=== PATIENT | female | born 1960 | race Caucasian/White ===

== ENCOUNTER 2024-12-11 08:42 | Outpatient (AMB) | payer MEDICARE, SELFPAY ==
--- NOTE | 2024-12-11 08:45 | HO.SPINEOV ---
Vital Signs 12/11/24 09:02 Height 5 ft 8 in Weight 135 lb BMI 20.5 Intake Visit Reasons: LBP Intake Note: Ms. Taylor is here today c/o low back pain that radiates down to the legs. 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 HPI: This 64-year-old female has not extensive spinal surgical history with cervical fusions and an L4-5 lumbar fusion. She was doing quite well until June where she was reading low to the ground and turned and fell backwards. This minor trauma elicited progressive back pain more on the right than the left, bilateral hip pain and thigh pains. The latter is worse at night. The pain is constantly present. Wakes her up at night. Preferably position is sleeping on her left side. Prolonged sitting aggravates his symptoms. She was recently diagnosed with ankylosing spondylitis. She tried physical therapy which made the symptoms worse. She is currently not allowed to have steroid injections due to suspicion of uveitis. PMH: Fibromyalgia, GERD Medications: Pantoprazole, Linzess, doxycycline, diazepam, methocarbamol p.r.n. Allergies: NKDA Social history: Nonsmoker Physical Exam: Pleasant female. He has bilateral pain over the SI joints. SI provocative tests are positive. Straight leg raise produces pain in the back. No motor or sensory deficits. Radiological Studies: MRI done at [place] on 10/31/2024 shows status post L4-5 lumbar fusion. Mild L1-L2 degenerative disc disease. Mild L5 endplate deformity. No nerve root compression. No spinal stenosis Impression/Plan: This patient has an exacerbation of chronic back pain after a minor trauma. Imaging reviews no significant anatomical abnormalities to explain the symptoms. I am wondering if she suffering from a sacroiliitis for which she has risk factors such as ankylosing spondylitis and a previous lumbar fusion. I advised to obtain a diagnostic block of the right SI joint. She will call the office of Dr. Gardner at [facility] to schedule this. Thank you for allowing me to participate in your patients care. total time spent was 50 minutes in counseling ,coordination of plan, personal review of imaging, surgical decision making and subsequent plan Harshad Lopes MD, PhD Sp[facility] Trained Neurosurgeon Director, [facility] Coding Level of Care Code New Pt Level 4 (76179) Diagnoses Sacroiliitis, not elsewhere classified M46.1
[2024-12-11 09:02] VITALS: BMI 20.5
--- OUTSIDE RECORDS SUMMARY | 2024-12-11 09:08 | XMS_ITS | Data Portability ---
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 The patient does have an MRI from almost 2 years ago of the foot that did show early osteoarthritis. This may have progressed significantly over the last 2 years. At this point, we will ask for MRI of her right ankle to further evaluate these 2 pathologies. Follow up once the exams have been done. The patient agrees with this plan. All questions have been answered. [email or web address] Not available 10/04/2023 10:21:04 10/30/2023 10/30/2023 ASSESSMENT Patient with chronic right great toe medial ankle lower leg pain, probable spine related. PLAN I did discuss with Laura, then I feel she needs to see a neurologist for possible EMG studies to assess if this is coming from her back. MRI shows no major structural abnormalities or dysfunction. She will do this followup with us on a p.r.n. basis. All questions were answered. Patient was seen and examined by Dr. Cole, dictated by TELLY Burrell. [email or web address] Not available 10/31/2023 05:07:44 Plan of Treatment Reminders Order Date Submit Date Provider Last Modified By Organization Details Last Modified Time Details Appointments Est. New to Provider 30 2024 10:00A Krunal MORGAN MD Not available Not available Not available Lab None recorded. Referral neurologi st referral - EMG study to assess nerve injury right lower extremity - patient with h/o spine dysfuncti on and pain along medial ankle, medial lower leg.... MRI ankle/trice t normal [address] [facility], [address], [place], [address], 11/10/2023 19:12:32 Procedures None recorded. Surgeries None recorded. Imaging electromy ogram + nerve conductio n study - Please call pt to schedule 2020 021 [facility], [address], [address], [place], [address], 05/05/2021 13:39:44 MRI, ankle + foot, w/o contrast - Right ankle & foot MRI w/o contrast - Assess for OA/DJD , PTT Tendon* pls obtain auth & call patient to schedule * [address] [facility], [address], [place], [address], 10/03/2023 17:59:01 Medication Orders None recorded. Patient TargetsNo targets recorded. Patient Instructions Encounter Date Encounter Id Patient Instructions Last Modified By Organization Details Last Modified Time 03/06/2021 [id number] The findings, diagnosis, and options are discussed including potential treatments. The decision was made to plan for EMG NCS. based on symptoms and clinical findings. We reviewed in detail today surgery for thumb CMC arthritis, risks benefits and postoperative expectations. She would consider this for July or Fall this year. For now she will use a thumb splint as needed. All questions are answered. Follow up will be arranged after testing. Patient will call if problems or questions. Not available 03/06/2021 11:38:26 05/08/2021 [id number] The findings, diagnosis, and options are discussed including potential treatments. We reviewed the findings of recent EMG NCS We again reviewed in detail today surgery for thumb CMC arthritis, carpal tunnel release, and mucous cyst excision in particular for the right thumb as this is more symptomatic. The risks benefits and postoperative expectations are outlined. She would consider this for July or Fall this year. For now she will use a thumb splint as needed. All questions are answered. She will contact the office when ready to plan for surgery. I spent a total of 20 minutes during this real-time interactive audio visual clinical encounter. Greater than 50% of the time was devoted to counseling and coordinating care including review of records, pertinent lab data and studies, discussing diagnostic evaluation and workup, planned therapeutic interventions and future disposition of care. This time includes any additional research needed to obtain further information in formulating the plan of care of this patient. It also included counseling the patient about their disease and diagnosis, specifically CTS, CMC arthritis, cyst and surgeries. Not available 05/08/2021 10:32:54 Reason for Referral Neurologist Referral for Nayan n in lower limb EMG study to assess nerve injury right lower extremity - patient with h/o spine dysfunction and pain along medial ankle, medial lower leg.... MRI ankle/foot normal Referring Physician: Enzo Cole, Orthopedic Surgery, Encounter Date: 10/30/2023 Results Created Date Observation Date Name Description Value Unit Range Abnormal Flag Note LastModifiedBy Organization Detail LastModifiedTime 03/06/20 21 MRI, hand, w/o contr ast No observ ation record ed. [email or web address] Not Available 2020 10:28:28 03/06/20 21 03/06/2021 xr hands bilat 3 views each min Fin al Report EXAM#: [id number] PROCED URE: DXR 0076 XR HANDS BILAT 3 VIEWS EACH MIN Mar 06 2021 11:06A M CLINIC AL INDICA TION: PAIN IN RIGHT HAND, PAIN IN LEFT HAND Compar karime: None FINDIN GS: Right hand demons trates thumb IP joint space narrow ing with small osteop hytes, compat ible with degene ration . Extens ion of the MTP joint may be fixed deform ity. Thumb CMC joint exhibi ts mild narrow ing. Index and long finger DIP joints exhibi t mild narrow ing and small osteop hytes. Left hand index DIP joint space narrow ing is modera te-mar ked with small osteop hytes, compat ible with degene rative joint diseas e. Narrow ing of the small finger DIP joint. NUMBER OF IMAGES : 6 Report ed by : HEBER ARANDA M.D. On: Mar 06 2021 4:01P Signed by: HEBER ARANDA M.D. On: Mar 06 2021 4:03P [email or web address] [facility] [address] [place], [address], 03/06/2021 16:24:28 03/06/20 21 03/06/2021 XR, hand, 3 or more view No observ ation record ed. [email or web address] (Mri) [address] [place], [address], 03/07/2021 07:01:12 04/28/20 21 04/28/2021 elect romyo gram + nerve condu ction study No observ ation record ed. [address] [facility] [address] [place], [address], 05/05/2021 13:39:57 04/28/20 21 04/28/2021 elect romyo gram + nerve condu ction study No observ ation record ed. [address] [facility] [address] [place], [address], 05/05/2021 13:40:58 10/03/20 23 10/03/2023 xr foot and ankle left 5 views Fin al Report EXAM#: [id number] PROCED URE: DXR 0038 XR FOOT AND ANKLE LEFT 5 VIEWS Oct 03 2023 2:57PM CLINIC AL INDICA TION: PAIN IN RIGHT AND LEFT ANKLE AND JOINTS OF RIGHT AND LEFT FOOT The ankle mortis e is not widene d. Degene rative change s are presen t of the first metata rsopha langea l joint. NUMBER OF IMAGES : 5 Report ed by : CHARI OLSON M.D. On: Oct 03 2023 3:11P Signed by: CHARI OLSON M.D. On: Oct 03 2023 3:11P [email or web address] [facility] [address] [place], [address], 10/03/2023 15:30:09 10/03/20 23 10/03/2023 xr foot and ankle right 5 views Fin al Report EXAM#: [id number] PROCED URE: DXR 0039 XR FOOT AND ANKLE RIGHT 5 VIEWS Oct 03 2023 2:57PM CLINIC AL INDICA TION: PAIN IN RIGHT AND LEFT ANKLE AND JOINTS OF RIGHT AND LEFT FOOT ADDITI ONAL INDICA TION: None TECHNI QUE: 5 views of the right foot and ankle. COMPAR KARIME: None FINDIN GS: No eviden ce of fractu re or malali gnment . The ankle mortis e is congru ent and the talar dome is intact . No articu lar abnorm alitie s identi fied. No osseou s lesion s are detect ed. No soft tissue abnorm alitie s are seen. NUMBER OF IMAGES : 5 Report ed by : LISA NASCIMENTO M.D. On: Oct 03 2023 3:12P Signed by: LISA NASCIMENTO M.D. On: Oct 03 2023 3:12P [facility] [address] [place], [address], 10/03/2023 15:30:10 10/22/20 23 10/21/2023 MRI, foot, w/o contr ast [facility] MRI and Imagin g- Mem Cam Access ion Number : [id number] Johanna t Name: Sheldon Lee [facility] Record Number : [id number] Date of : 1959 Date of Exam: 2022 Referr ing Physic russ: Enzo Michaels [employer] [address] [place] [address] Exam: MR Foot (C-) CPT 17344 - Right Room Descri ption: [facility] emGEHD Mob 1.5 INDICA TION: Ankle and foot pain. TECHNI QUE: Multip lanar, multis equenc e MRI of the right ankle and foot was perfor med withou t contra st using standa rd depart mental protoc ol. COMPAR KARIME: MRI right ankle and foot 022. FINDIN GS: JOINTS /BONES : Small joint effusi on or synovi al gangli on fourth tarsom etatar jose carlos joint, unchan ged. Simila r patchy marrow edema involv ing the distal phalan ges of the toes most promin ent in the great toe. Simila r mild edema of the fibula r hallux sesamo id. No acute fractu re. No osteoc hondra l lesion . Mild osteoa rthrit is at first metata rsopha langea l joint. No osseou s erosio ns. No coalit ion. Normal hindfo ot alignm ent on this non-we ightbe aring examin ation. LATERA L LIGAME NTS: Anteri or talofi bular (ATFL) : Unrema rkable . Calcan eofibu lar (CFL): Unrema rkable . Safety Administrator ior talofi bular (PTFL) : Unrema rkable . Anteri or/Pos terior syndes mosis: Unrema rkable . MEDIAL LIGAME NTS: Deltoi d: Unrema rkable . Spring : Unrema rkable . LISFRA NC LIGAME NT: Intact . PERONE AL TENDON S: Perone us longus : No tendin osis or tear. Perone us brevis : No tendin osis or tear. FLEXOR TENDON S: Safety Administrator ior tibial is: No tendin osis or tear. Flexor digito rum longus : No tendin osis or tear. Flexor halluc is longus : No tendin osis or tear. EXTENS OR TENDON S: Anteri or tibial is: No tendin osis or tear. Extens or halluc is longus : No tendin osis or tear. Extens or digito rum longus : No tendin osis or tear. ACHILL ES TENDON : No tendin osis or tear. PLANTA R PLATES : Intact planta r plates withou t tear. INTERM ETATAR JOSE CARLOS SPACES : No interm etatar jose carlos neurom a. No interm etatar jose carlos bursit is. TENDON S: Flexor and extens or tendon s intact withou t tendin osis or tear. No tenosy noviti s. OTHER: Planta r fascia : No thicke sabina or perifa cial edema Sinus tarsi: Sinus tarsi fat preser johanna. Tarsal tunnel : Unrema rkable ; no mass or mass effect . Muscle s: Mild fatty atroph y of the muscul ature. Soft tissue s: No subcut aneous edema. No fluid collec tion or soft tissue mass. IMPRES AMRITA: No signif icant interv al change since prior MRI. Unchan ged patchy marrow edema in the distal phalan ges of the toes. I, Terrence Smith, have review ed the examin ation and concur with the findin gs as report ed or so edited . Traine e: Debbie Fraser If this radiol ogy report contai ns a blank impres amrita sectio n, it is an incomp lete radiol ogy report . Please contac t the interp reting radiol ogist or applic able radiol ogy divisi on as soon as possib le to obtain the comple dejon interp retati on. Workst ation ID: [id number]' 8 140 Electr onical ly Signed By: Terrence Smith MD [address] [facility] At [address], [address], 10/22/2023 20:43:11 10/22/20 23 10/21/2023 MRI, ankle , w/o contr ast [facility] MRI and Imagin g- Mem Cam Access ion Number : [id number] Patien t Name: Alexandrea [facility] Record Number : [id number] Date of : 1959 Date of Exam: 2022 Referr ing Physic russ: Enzo Michaels [employer] [address] [place] [address] Exam: MR Ankle (C-) CPT 97956 - Right Room Descri ption: [facility] emGEHD Mob 1.5 INDICA TION: Ankle and foot pain. TECHNI QUE: Multip lanar, multis equenc e MRI of the right ankle and foot was perfor med withou t contra st using standa rd depart mental protoc ol. COMPAR KARIME: MRI right ankle and foot 022. FINDIN GS: JOINTS /BONES : Small joint effusi on or synovi al gangli on fourth tarsom etatar jose carlos joint, unchan ged. Simila r patchy marrow edema involv ing the distal phalan ges of the toes most promin ent in the great toe. Simila r mild edema of the fibula r hallux sesamo id. No acute fractu re. No osteoc hondra l lesion . Mild osteoa rthrit is at first metata rsopha langea l joint. No osseou s erosio ns. No coalit ion. Normal hindfo ot alignm ent on this non-we ightbe aring examin ation. LATERA L LIGAME NTS: Anteri or talofi bular (ATFL) : Unrema rkable . Calcan eofibu lar (CFL): Unrema rkable . Safety Administrator ior talofi bular (PTFL) : Unrema rkable . Anteri or/Pos terior syndes mosis: Unrema rkable . MEDIAL LIGAME NTS: Deltoi d: Unrema rkable . Spring : Unrema rkable . LISFRA NC LIGAME NT: Intact . PERONE AL TENDON S: Perone us longus : No tendin osis or tear. Perone us brevis : No tendin osis or tear. FLEXOR TENDON S: Safety Administrator ior tibial is: No tendin osis or tear. Flexor digito rum longus : No tendin osis or tear. Flexor halluc is longus : No tendin osis or tear. EXTENS OR TENDON S: Anteri or tibial is: No tendin osis or tear. Extens or halluc is longus : No tendin osis or tear. Extens or digito rum longus : No tendin osis or tear. ACHILL ES TENDON : No tendin osis or tear. PLANTA R PLATES : Intact planta r plates withou t tear. INTERM ETATAR JOSE CARLOS SPACES : No interm etatar jose carlos neurom a. No interm etatar jose carlos bursit is. TENDON S: Flexor and extens or tendon s intact withou t tendin osis or tear. No tenosy noviti s. OTHER: Planta r fascia : No thicke sabina or perifa cial edema Sinus tarsi: Sinus tarsi fat preser johanna. Tarsal tunnel : Unrema rkable ; no mass or mass effect . Muscle s: Mild fatty atroph y of the muscul ature. Soft tissue s: No subcut aneous edema. No fluid collec tion or soft tissue mass. IMPRES AMRITA: No signif icant interv al change since prior MRI. Unchan ged patchy marrow edema in the distal phalan ges of the toes. I, Terrence Smith, have review ed the examin ation and concur with the findin gs as report ed or so edited . Brooklynn lundberg: Debbie Fraser If this radiol ogy report contai ns a blank impres amrita sectio n, it is an incomp lete radiol ogy report . Please contac t the interp reting radiol ogist or applic able radiol ogy divisi on as soon as possib le to obtain the comple dejon interp retati on. Workst ation ID: [id number] 5' 8 140 Electr onical ly Signed By: Terrence Smith MD [address] [facility] At [address], [address], 10/22/2023 20:43:11 01/09/20 24 nerve condu ction study /EMG, lower extre mity (PROC ) No observ ation record ed. [email or web address] Not Available 2023 11:15:08 11/11/20 24 10/31/2024 MRI, lumba r spine , w/o contr ast No observ ation record ed. [email or web address] Not Available 2023 10:23:32 Result Notes None recorded. Procedures Surgical History Date Name Laterality Status Provider Name and Address Organization Details Recorded Time 11/25/19 08 Orthopaedic Surgery completed Marija Esquivel MA [facility] 03/06/2021 10:20:28 11/25/19 05 Orthopaedic Surgery completed Marija Esquivel MA [facility] 03/06/2021 10:20:39 11/25/19 02 Orthopaedic Surgery completed Marija Esquivel MA [facility] 03/06/2021 10:20:44 06/03/19 99 Orthopaedic Surgery completed Marija Esquivel MA [facility] 03/06/2021 10:20:51 Imaging Results Imaging Date Name Status LastModified by Organization Details LastModified Time 03/06/2021 MRI, hand, w/o contrast completed [email or web address] Information not available 03/06/2021 10:28:28 03/06/2021 xr hands bilat 3 views each min completed [address] [facility] [address] [place], [address], 03/06/2021 16:24:28 03/06/2021 XR, hand, 3 or more view completed [address] (Mri) [address] [place], [address], 03/07/2021 07:01:12 04/28/2021 electromyogram + nerve conduction study completed [address] [facility] [address] [place], [address], 05/05/2021 13:39:57 04/28/2021 electromyogram + nerve conduction study completed [address] [facility] [address] [place], [address], 05/05/2021 13:40:58 10/03/2023 xr foot and ankle left 5 views completed [address] [facility] [address] [place], [address], 10/03/2023 15:30:09 10/03/2023 xr foot and ankle right 5 views completed [address] [facility] [address] [place], [address], 10/03/2023 15:30:10 10/21/2023 MRI, foot, w/o contrast completed [address] [facility] [address], [address], 10/22/2023 20:43:11 10/21/2023 MRI, ankle, w/o contrast completed [address] [facility] At [address], [address], 10/22/2023 20:43:11 01/09/2024 nerve conduction study/EMG, lower extremity (PROC) [email or web address] Information not available 01/09/2024 11:15:08 10/31/2024 MRI, lumbar spine, w/o contrast completed [email or web address] Information not available 11/11/2024 10:23:32 Procedure Notes None recorded. Medical Equipment None Reported. Allergies No known drug allergies Medications Not known to be on any medication Vitals Date Recorded Body height Provider Name an d Address Organization Details Last Updated DateTime 03/06/2021 172.72 cm Marija Esquivel [facility] 03/06/2021 10:16:54 Date Recorded Body mass index (BMI) Body weight Provider Name and Address Organization Details Last Updated DateTime 03/06/2021 20.5 kg/m2 52214.97 g Marija Esquivel MA [facility] 03/06/2021 10:16:55 Date Recorded Body height Provider Name an d Address Organization Details Last Updated DateTime 05/08/2021 172.72 cm Leeanne Medina [facility] 05/08/2021 10:07:04 Date Recorded Body height Provider Name an d Address Organization Details Last Updated DateTime 10/03/2023 172.72 [facility] 10/03/2023 15:00:49 Date Recorded Body mass index (BMI) Body weight Provider Name and Address Organization Details Last Updated DateTime 10/03/2023 20.5 kg/m2 92419.97 g [facility] 10/03/2023 15:00:52 Date Recorded Body height Provider Name an d Address Organization Details Last Updated DateTime 10/30/2023 172.72 cm Estuardo Montesus [facility] 10/30/2023 11:45:02 Social History Question Answer Notes LastModified by Organizat ion Details LastModified Time Tobacco Smoking Status Never Smoker Marija Esquivel [facility] 03/06/2021 10:17:04 What Is Your Level Of Alcohol Consumption? Occasional [email or web address] Information not available 03/06/2021 Auto Related Injury? No [email or web address] Information not available 10/03/2023 What Is Your Level Of Caffeine Consumption? Moderate [email or web address] Information not available 03/06/2021 Do You Or Have You Ever Used E-cigarettes Or Vape? Never Used Electronic Cigarettes [email or web address] Information not available 03/06/2021 What Is Your Occupation? Retired [email or web address] Information not available 03/06/2021 Have You Had Cortisone? Yes [email or web address] Information not available 03/06/2021 Do You Or Have You Ever Used Smokeless Tobacco? Never Used Smokeless Tobacco [email or web address] Information not available 03/06/2021 Work Related Injury? No [email or web address] Information not available 10/03/2023 Sex: Unknown Functional Status Question Answer Note LastModified by Organizat ion Details LastModified Time What is your exercise level? Occasional [email or web address] Information not available 03/06/2021 Mental Status None recorded. Family History Relationship Description Onset Age of this Age Resolved Age Notes LastModified by Organization Details LastModified Time Father No current problems or disability [email or web address] Not available 07/2023 15:00:56 Mother No current problems or disability [email or web address] Not available 07/2023 15:00:56 Mother History of anesthesia problem [email or web address] Not available 10/03 15:00:56 Mother Phlebitis Not availa ble 10/03/2023 15:00:56 Medical History Condition Response Blood Clots / Phlebitis N Heart Problems N HIV or AIDS N Depression or Anxiety N High Blood Pressure N Irregular Heartbeat N MRSA N Emphysema / Chronic Bronchitis N Any Other Significant Medical Issues N Reaction to General/Local Anesthesia Y Weight Gain / Loss N Hepatitis / Jaundice N Kidney / Bladder Infections N Diabetes N Bleeding Disorder N Hearing Loss N Angina, Heart Failure or Attack N Night Sweats N Seizures / Epilepsy N Osteoarthritis / Rheumatoid arthritis / Other Y Cancer N Stroke N Chemical Dependency / Alcoholism N Ulcer / Stomach Bleeding / Indigestion N Visual Loss or Glaucoma N Psoriasis / Skin Rash N Thyroid Disorder N Heart Disease N Asthma / Shortness of Breath / Sleep Hotel Yardperson ea (please specify) N Pulmonary Embolism N Gynecological HistoryNo gynecological history recorded. Obstetrics History GPAL:G 0 P 0 0 0 0 Immunizations Vaccine Type Date Status Note Provider Nam e and Address Organization Details Recorded Time SARS-COV-2 (COVID-19) vaccine, UNSPECIFIED completed Marija lopez MA [facility] 03/06/2021 10:17:31 Past Encounters Encounter ID Performer Location Encounter Start Date Encounter Closed Date Diagnosis/Indication Diagnosis SNOMED-CT Code Diagnosis ICD10 Code Diagnosis Note [id number] ROSEMARIE COLEMAN MD [address] [place] [address] 03/06/2021 10:04:42 03/06/2021 11:06:39 Arthritis of first carpometacarpal joint of right hand 5324274220 027374 M13.841 Degenerati ve joint disease of hand 14856754 M19.049 Digital mucous cyst 4040 43821 M71.341 Bilateral carpal tunnel syndrome 3042568064 1318875 G56.03 [id number] ROSEMARIE COLEMAN MD [place] [facility] [address] [place] [address] 05/08/2021 06:37:03 05/08/2021 10:24:03 Arthritis of first carpometacarpal joint of right hand 3495324509 986224 M13.841 Degenerati ve joint disease of hand 15570556 M19.049 Digital mucous cyst 4040 59844 M71.341 thumb IP joint Bilateral carpal tunnel syndrome 0865168078 9649818 G56.03 mild Ulnar neur opathy of left arm 7226619432 54977 G56.22 mild [id number] ENZO COLE MD [place] [facility] [address] [address] 10/03/2023 14:32:22 10/03/2023 17:02:39 Pain in toe 548592492 M79.674 Tibialis p osterior tendinitis 274272357 M76.351 [id number] ENZO COLE MD [place] [facility] [address] [place] [phone] 10/30/2023 11:37:03 10/30/2023 14:02:30 Pain in lower limb 94579211 M79.606 Health Concerns Section Related Observation LastModified by Organization Detai ls LastModified Time None Recorded Concern Status LastModified by Organization Details LastModified Time None Recorded Advance Directives Directive None Recorded Payers Encounter Date Sequence Insurance Name Policy Number Policy [employer] Covered Member ID [employer] Member ID Guarantor Name 03/06/2021 1 [facility] (MEDICARE REPLACEMENT/A DVANTAGE - PPO) [id number] Gildardo Lee [id number] Laura naranjo 05/08/2021 1 [facility] (MEDICARE REPLACEMENT/A DVANTAGE - PPO) [id number] Gildardo Lee [id number] Laura Hathaway n 10/03/2023 1 [facility] (MEDICARE REPLACEMENT/A DVANTAGE - PPO) [id number] Gildardo Lee [id number] Laura Hathaway n 10/30/2023 1 [facility] (MEDICARE REPLACEMENT/A DVANTAGE - PPO) [id number] Gildardo Lee [id number] Laura Hathaway n Notes Date Note Type Note Provider Name and Address Organization Details Recorded Time 03/06/2021 text/html The patient is s een today for evaluation of bilateral hand pain and paresthesias. This is consistent in part with past diagnosis of thumb CMC arthritis and CTS bilateral. History is notable for cervical radiculopathy. She has been under the care of Dr. Arellano for these hand conditions. Past treatments have included: activity modification, NSAIDs, splinting, therapy, and multiple coritisone CMC injection(s). Last 2 injections have not helped. Imaging/tests performed: radiographs not available. Current associated signs and symptoms include: pain, stiffness, difficulty with credit collections specialist and paresthesias. No prior history of trauma is noted. Consultation is requested. ROSEMARIE COLEMAN MD [address] [place] [address], [phone] 03/06/2021 11:44:01 05/08/2021 text/html This visit was conducted as a real-time interactive telehealth encounter (telephone with interactive audio visual) due to the national emergency and ongoing COVID-19 pandemic restrictions on travel/movement. The patient was identified by name and date of , and consented to this encounter as an interactive audio visual telehealth visit. The patient was at home in [place] and I was at my office/home office. The patient's recent medical history and prior records were reviewed. Application utilized: Qure4U The patient is re evaluated for bilateral hand pain and paresthesias. This is consistent in part with past diagnosis of thumb CMC arthritis and CTS bilateral. She has previously treated with Dr. Arellano for these hand conditions. Past treatments have included: activity modification, NSAIDs, splinting, therapy, and multiple coritisone CMC injection(s). Last 2 injections have not helped. Imaging/tests performed: radiographs not available. Current associated signs and symptoms include: pain, stiffness, difficulty with credit collections specialist and paresthesias. This prompted EMG NCS, surgery has been discussed in past. Her is with her today. ROSEMARIE COLEMAN MD [address] [place] [address], [place], [phone], [facility] 05/08/2021 10:32:59 10/03/2023 text/html Laura is a very pleasant 63-year-old lady who comes for a problem with her right foot and ankle. She also suffers from Raynaud syndrome. She refers some pain behind her medial now the pain is constant, painful and tender to palpation. She also has pain over her 1st MTP joint. Several months ago, she did have out in office surgery with exotic dancer which had incision in the medial side of interphalangeal joint and apparently some bone spurs were removed. Independent review of x-rays taken today show normal ankle. No arthritis of the ankle joint and subtalar joint. Mild arthritis of the 1st MTP joint. Overall, the alignment of the hindfoot, midfoot, and forefoot. Some evidence of 2nd, 3rd and 4th hammertoe. This is flexible physical exam, not painful. She does have scar over her medial aspect of her 1st toe. No radiological evidence of any metal implants or any prior scar from a prior surgery. ENZO COLE MD [address] [place] [address], [phone], [facility] 10/04/2023 13:10:36 10/30/2023 text/html Laura retur ns to clinic today to review an MRI of her foot and ankle. She was last seen by Dr. Cole on 10/03/2023. She has had some chronic pain through the great toe, medial ankle, anteromedial craven going up to her knee. She does have history of 5 spine surgeries having some numbness in this leg and no pain. MRIs were ordered to assess for an orthopedic etiology. ENZO COLE MD [address] [place] [address], [phone], [facility] 10/31/2023 13:43:52 OBGyn Episode No OBEpisode recorded.
--- OUTSIDE RECORDS SUMMARY | 2024-12-11 09:08 | XMS_ITS | Data Portability ---
Author Organization [facility] Address [address] [place] [address] Care Team Providers Care Pearl Digger Name Role Phone JUAN JOSE ÁLVAREZ Primary Care Provider JUAN JOSE ÁLVAREZ Referring Provider [phone] Assessment No assessment recorded. Plan of Treatment Reminders Order Date Submit Date Provider Last Modified By Organization Details Last Modified Time Details Appointments None record ed. Lab None record ed. Referral None record ed. Procedures None record ed. Surgeries None record ed. Imaging None record ed. Medication Orders None record ed. Patient TargetsNo targets recorded. Patient InstructionsNo instructions recorded. Reason for Referral None Reported. Problems Name Problem SNOMED Code Status Onset Date Resolution Date Notes Provider Name and Address Organization Details Recorded Time Valgus deformity of toe 138816574 Active 2022 Hallux valgus, right foot; W/U Status: confirmed W/U Status: confirmed Hallux valgus, left foot; W/U Status: confirmed W/U Status: confirmed Not Available [facility] 3 13:17:57 Neuropath y of lower limb 001717811 Active 2022 Unspecifi ed mononeuro juwan of left lower limb; W/U Status: confirmed W/U Status: confirmed Not Available [facility] 3 13:17:57 Acquired right hallux valgus 88853200931 410 Active 2022 Hallux valgus, right foot; W/U Status: confirmed Not Available [facility] 3 09:02:54 Acquired left hallux valgus 28611730741 410 Active 2022 Hallux valgus, left foot; W/U Status: confirmed Not Available [facility] 3 09:02:54 Mononeuro juwan of lower limb 334829316 Active 2022 Unspecifi ed mononeuro juwan of left lower limb; W/U Status: confirmed Not Available [facility] 3 09:02:54 Problem Notes None recorded. Medical Equipment None Reported. Medications Name Sig Start Date Stop Date Status Note LastModified by Organization Details LastModified Time methocarbamol 500 mg tablet TAKE 2 TABLETS BY MOUTH 4 TIMES A DAY NEEDED active Not Available Not Available No t Available minoxidil 2.5 mg tablet TAKE 1/2 TABLET BY MOUTH EVERY OTHER DAY FOR 3 MONTHS THEN INCREASE TO 1/2 TABLET DAILY DIRECTED active Not Available Not Available No t Available oxycodone-acet aminophen 5 mg-325 mg tablet active Not Available Not Available Not Available doxycycline monohydrate 50 mg capsule TAKE 1 CAPSULE BY MOUTH EVERY DAY active Not Available Not Available No t Available nifedipine 10 mg capsule TAKE 1 CAPSULE BY MOUTH EVERY 12 HOURS DIRECTED active Not Available Not Available No t Available cephalexin 500 mg capsule active Not Available Not Available N ot Available pantoprazole 40 mg tablet,delayed release TAKE 1 TABLET BY MOUTH ONCE DAILY FOR 30 MIN BEFORE DINNER active Not Available Not Available No t Available omeprazole 20 mg capsule,delaye d release TAKE 1 CAPSULE BY MOUTH TWICE A DAY active Not Available Not Available No t Available codeine 10 mg-guaifenesin 100 mg/5 mL oral liquid TAKE 10 ML BY MOUTH EVERY 4 HOURS FOR 5 DAYS active Not Available Not Available No t Available estradiol 0.01% (0.1 mg/gram) vaginal cream active Not Available Not Availabl e Not Available methylpredniso lone 4 mg tablets in a dose pack active Not Available Not Available No t Available diazepam 5 mg tablet 1 TABS ORALLY TWICE A DAY NEEDED MUSCLE PAIN 30 DAYS active Not Available Not Available No t Available sumatriptan 6 mg/0.5 mL subcutaneous pen injector active Not Available Not Available Not Available clobetasol 0.05 % shampoo active Not Available Not Availab le Not Available duloxetine 30 mg capsule,delaye d release active Not Available Not Available No t Available Paxlovid 300 mg (150 mg x 2)-100 mg tablets in a dose pack TAKE 3 TABLETS BY MOUTH TWICE A DAY FOR 5 DAYS active Not Available Not Available No t Available Vitals None Recorded Social History None recorded. Functional Status None recorded. Mental Status None recorded. Family History Nothing Reported. Medical History No medical history recorded. Gynecological HistoryNo gynecological history recorded. Obstetrics History GPAL:G 0 P 0 0 0 0 Past Encounters Encounter ID Performer Location Encounter Start Date Encounter Closed Date Diagnosis/Indication Diagnosis SNOMED-CT Code Diagnosis ICD10 Code Diagnosis Note [id number] Israel Lazar DPM [address] [address] 08/15/2023 13:29:38 08/15/2023 13:56:32 Metatarsalgia of right foot [id number] 92961 M77.41 Metatarsal fabiola of left foot 2470039588 58122 M77.42 We recommend that she continue with physical therapy at the present time. Since her pain is not bothering her presently, we will follow with the patient in 2 months. If her symptoms persist, it is possible that the orthotic may not be adequately protecting central metatarsal s during gait. [id number] Israel Lazar DPM [address] [address] 11/07/2023 14:16:13 11/07/2023 14:35:43 Pain in right foot [id number] 66407 M79.671 We recommend neurology consult since her symptoms are worse when she is lying in bed at night and did not appear to be exacerbate d with weightbear ing. Descriptio n of her symptoms sound consistent with neuropathi c pain. She does relate issues with the lower back. [id number] Israel Lazar DPM [address] [address] 04/15/2024 10:41:56 04/15/2024 10:59:39 Acquired hammer toe of right foot [id number] 647879 M20.41 Patient is using silicon interspace pads between the fourth and fifth digits and also on the second digit over the PIPJ. We debrided callus today and discuss the option of performing an arthroplas ty of the fifth digit with the intention of decreasing pressure between the fourth and fifth digit during gait. We discussed the surgical technique, specifics of the postoperat chantell period, and the risks involved. [id number] Israel Lazar DPM [facility] [address] [place] [address] 08/06/2024 14:56:51 08/06/2024 15:34:25 Pain in right foot [id number] 54929 M79.671 Fact that the pain radiates from the right hallux up the medial aspect of the ankle and medial right leg suggests possible proximal radiculopa thy. Patient is not interested in going back on gabapentin or Cymbalta. She does feel at the Cymbalta help to lessen her symptoms. We did perform a wedge resection at the medial border of the right hallux. We did debride the callus at the plantar medial aspect of the hallux IPJ. Health Concerns Section Related Observation LastModified by Organization Detai ls LastModified Time None Recorded Concern Status LastModified by Organization Details LastModified Time None Recorded Advance Directives Directive None Recorded Payers Encounter Date Sequence Insurance Name Policy Number Policy [employer] Covered Member ID [employer] Member ID Guarantor Name 11/07/2023 1 [place] [id number] [id number] 04/15/[address] Taylor Jesus [id number] Laura Taylor Jesus 08/06/[address] Talyor Jesus [id number] [facility] Notes Date Note Type Note Provider Name and Address Organization Details Recorded Time 08/15/2023 text/html Patient presents to the office for follow-up of bilateral forefoot pain. She is status post reduction of exostosis at the hallux IPJ of the right foot. This area is pain-free at the present time. She states that the pain in the forefoot has not been bad recently. She has a pair of orthotics which were made by an orthopedic surgeon in [place] 2 years ago. These were made with a scanning device. She does not have them with her today. Patient points to the dorsal aspect of the midfoot in the area of the central metatarsals as the area of most pain when the pain is present. She states that the area is nonpainful presently as stated above. Israel Lazar DPM [address] [place], [phone], [facility] 08/18/2023 16:42:56 11/07/2023 text/html Patient presents to the office complaining of pain in the right lower extremity which occasionally starts in the medial aspect of the ankle and radiates proximally to the knee. She is status post reduction of exostosis at the plantar medial aspect of the hallux IPJ of the right foot. She states that this procedure has helped to lessen her pain in this area during ambulation. She states that the pain in her leg and in her foot seems to be worse when she is lying in bed at night. Patient has fibromyalgia. In the past, she has tried gabapentin but wishes to not be on this medication. She has tried Cymbalta and this helped with fibromyalgia pain, however she wishes to not be on this medication. Israel Lazar, [address], [phone], [facility] 11/07/2023 14:36:37 04/15/2024 text/html Patient presents to the office with a chief complaint of pain between the fourth and fifth digit of the right foot. She states that she has had this problem on and off for over 40 years. She is also experiencing a mild recurrence pain at the plantar medial aspect of the first IPJ of the right foot. She is status post surgical reduction of exostosis in this area. She is been completely pain free since her surgery up until recently. She is using a pair of slip on flexible soled shoes that she finds very comfortable. Patient has fibromyalgia. Israel Lazar DPM [address] [place] [address], [phone], [facility] 04/15/2024 11:07:17 08/06/2024 text/html Patient presents to the office with a chief complaint of pain in the right hallux and medial aspect of the right foot and right lower leg. She is status post surgical reduction of exostosis at the right hallux which was performed in April 2023. She feels that this procedure did help to lessen her symptoms. She is not sure if her pain is in the area of her previous exostosis or if it is in the nail border. She recently cut her nail back. He points to the medial border is an area of pain. There is slight redness and swelling present at the right hallux but no increase in temperature. Mild swelling without redness at the medial aspect of the right ankle. No pain to palpation of the calf muscle of the right side. Patient has fibromyalgia. She states that she has had pain in the right hallux resolved with lower back injection previously. Israel Lazar, DPKrunal [address] [place], [phone], [facility] 08/06/2024 15:40:40 OBGyn Episode No OBEpisode recorded.
--- OUTSIDE RECORDS SUMMARY | 2024-12-11 09:08 | XMS_ITS | Data Portability ---
Author Organization [place] - [facility] [employer], [employer] [facility] Address [address] [address] Assessment No assessment recorded. Plan of Treatment [...] instructions recorded. Reason for Referral None Reported. Results Created Date Observation Date Name Description Value Unit Range Abnormal Flag Note LastModifiedBy Organization Detail LastModifiedTime 01/09/20 24 01/08/2024 nerve condu ction study /EMG, lower extre mity (PROC ) No observ ation record ed. [id number] Not Available 02/29/2024 00:36:08 Result Notes None recorded. Procedures Surgical History None recorded. Imaging Results Imaging Date Name Status LastModified by Organiz ation Details LastModified Time 01/08/2024 nerve conduction study/EMG, lower extremity (PROC) completed [id number] Information not available 02/29/2024 00:36:08 Procedure Notes None recorded. Medical Equipment None Reported. Medications Name Sig Start Date Stop Date Status Note LastModified by Organization Details LastModified Time methocarbamol 500 mg tablet TAKE 2 TABLETS BY MOUTH 4 TIMES A DAY FOR 30 DAYS active Not Available Not Available No t Available minoxidil 2.5 mg tablet TAKE 1/2 TABLET BY MOUTH EVERY OTHER DAY FOR 3 MONTHS THEN INCREASE TO 1/2 TABLET DAILY DIRECTED active Not Available Not Available No t Available oxycodone-acet aminophen 5 mg-325 mg tablet active Not Available Not Available Not Available nifedipine 10 mg capsule TAKE 1 CAPSULE BY MOUTH EVERY 12 HOURS DIRECTED active Not Available Not Available No t Available cephalexin 500 mg capsule active Not Available Not Available N ot Available omeprazole 20 mg capsule,delaye d release [...] Not Available Not Availabl e Not Available diazepam 5 mg tablet active Not Available Not Available Not Available sumatriptan 6 mg/0.5 mL subcutaneous pen [...] SNOMED-CT Code Diagnosis ICD10 Code Diagnosis Note [id number] MD singh Escobarzz [address] [address] 01/08/2024 10:07:28 01/08/2024 12:12:[id number] [address] 01/08/2024 00:00:00 01/08/2024 11:23:03 Health Concerns Section Related Observation LastModified by Organization Detai ls LastModified Time None Recorded Concern Status LastModified by Organization Details LastModified Time None Recorded Advance Directives Directive None Recorded Payers None recorded. OBGyn Episode No OBEpisode recorded.
--- OUTSIDE RECORDS SUMMARY | 2024-12-11 09:08 | XMS_ITS | Data Portability ---
Author Organization [facility], Patient Home Address [address] [place] [id number] Care Team Providers Care Stars Analytical Lead Name Role Phone JUAN JOSE ÁLVAREZ Primary Care Provider JUAN JOSE ÁLVAREZ Referring Provider Assessment No assessment recorded. Plan of Treatment Reminders Order Date Submit Date Provider Last Modified By Organization Details Last Modified Time Details Appointments None recorded. Lab drug screen, urine 2022 023 [email or web address] Main Office, [address] [place] [address], [place], [address], 3 09:47:05 Referral None recorded. Procedures None recorded. Surgeries None recorded. Imaging None recorded. Medication Orders Cymbalta 30 mg capsule,de layed release 2022 023 [id number], [address] [place], [address], 3 09:47:08 Patient Targets Encounter Date Encounter Id Patient Goals Patient Target Last Modified By Organization Details Last Modified Time decrease painincrease activitiesImprove life quality [email or web address] Not available 03/22/2023 18:24:17 Patient Instructions Encounter Date Encounter Id Patient Instructions Last Modified By Organization Details Last Modified Time 03/18/2023 [id number] Given [email or web address] Not available 03/22 18:24:39 Given [email or web address] Not available 2022 18:24:57 Reason for Referral None Reported. Results Created Date Observation Date Name Description Value Unit Range Abnormal Flag Note LastModifiedBy Organization Detail LastModifiedTime 03/18/20 23 03/18/2023 drug scree n, urine Amphetamines : negati ve Not Available Main Office [address] [address], [place], [address], 03/18/2023 09:18:51 03/18/20 23 03/18/2023 drug scree n, urine Cannabinoids :THC negati ve Not Available Main Office [address] [place] [address], [place], [address], 03/18/2023 09:18:51 03/18/20 23 03/18/2023 drug scree n, urine Cocaine: negati ve Not Available Main Office [address] [place] [address], [place], [address], 03/18/2023 09:18:51 03/18/20 23 03/18/2023 drug scree n, urine Methadone: negati ve Not Available Main Office [address] [place] [address], [place], [address], 03/18/2023 09:18:51 03/18/20 23 03/18/2023 drug scree n, urine Opiates: negati ve Not Available Main Office [address] [place] [address], [place], [address], 03/18/2023 09:18:51 03/18/20 23 03/18/2023 drug scree n, urine Oxycodone: negati ve Not Available Main Office [address] [place] [address], [place], [address], 03/18/2023 09:18:51 03/18/20 23 03/18/2023 drug scree n, urine Phenocyclidi ne: negati ve Not Available Main Office [address] [place] [address], [place], [address], 03/18/2023 09:18:51 03/18/20 23 03/18/2023 drug scree n, urine Barbiturates : negati ve Not Available Main Office [address] [facility] [address], [place], [address], 03/18/2023 09:18:51 03/18/2003/18/2023 drug scree n, urine Benzodiazepi robert: negati ve Not Available Main Office [address] [facility] [address], [place], [address], 03/18/2023 09:18:51 03/18/20 23 03/18/2023 drug scree n, urine Buprenorphin e negati ve Not Available Main Office [address] [address], [place], [address], 03/18/2023 09:18:51 03/18/2003/18/2023 drug scree n, urine Methamphetam ine negati ve Not Available Main Office [address] [address], [place], [address], 03/18/2023 09:18:51 03/18/2003/18/2023 drug scree n, urine MDMA negati ve Not Available Main Office [address] [address], [place], [address], 03/18/2023 09:18:51 Result Notes None recorded. Problems Name Problem SNOMED Code Status Onset Date Resolution Date Notes Provider Name and Address Organization Details Recorded Time Thyroid nodule 750702918 Active 2022 Emily Kapadia null, [place] - [facility], [facility] 3 10:50:31 Anxiety disorder 407968452 Active 2022 Emily Kapadia null, [place] - [facility], [facility] 10:50:37 Fibromyalgia 235092814 Active 2022 Emily Kapadia null, [place] - [facility], [facility] 3 10:50:43 Migraine without aura 68064133 Active 2022 Emily Kapadia null, [place] - [facility], [facility] 3 10:50:54 Gastroesophage al reflux disease without esophagitis 806828827 Active 2022 Emily Kapadia null, [place] - [facility], [facility] 3 10:51:02 Degeneration of cervical intervertebral disc and osteophyte of cervical vertebra 072328756 Active 2022 Emily Kapadia null, [place] - [facility], [facility] 3 10:51:23 Osteoarthritis of finger joint 149414798 Active 2022 Emily Kapadia null, [place] - [facility], [facility] 3 10:51:40 Osteoporosis 03704950 Active 2022 Emily Kapadia null, [place] - [facility], [facility] 10:51:54 Problem Notes None recorded. Procedures Surgical History Date Name Laterality Status Provider Name and Address Organization Details Recorded Time local anesthetic cervical facet joint nerve block completed Emily Kapadia [place] - [facility], [facility] 03/05/2023 10:48:55 hemorrhoidectomy completed Emily Kapadia [place] - [facility], [facility] 03/05/2023 10:49:40 lumbar spinal fusion completed Alexa corie Kapadia [place] - [facility], [facility] 03/18/2023 09:14:48 primary fusion of cervical spine completed Emily Kapadia [place] - [facility], [facility] 03/18/2023 09:15:02 primary lumbar discectomy completed Emily Kapadia [place] - [facility], [facility] 03/18/2023 09:15:19 Imaging Results None recorded. Procedure Notes None recorded. Medical Equipment None Reported. Allergies Allergen ID Allergen Name Allergen Category Reaction Reaction Severity Criticality Documentation Date Start Date Code Code System Note Provider Name and Address Organization Details Recorded Time 5649 adhesive tape environme nt,medica tion Not available Not available Not available 03/05/2023 Emily Kapadia null, [place] - [facility], [facility] 10:49:55 Medications Name Sig Start Date Stop Date Status Note LastModified by Organization Details LastModified Time methocarbamol 500 mg tablet Take 1 tablet as needed by oral route as needed. active Not Available Not Available No t Available hydrocodone 5 mg-acetaminoph en 325 mg tablet active Not Available Not Available Not Available nifedipine 10 mg capsule TAKE 1 CAPSULE BY MOUTH EVERY 12 HOURS DIRECTED active Not Available Not Available No t Available Valium 5 mg tablet Take 1 tablet as needed by oral route as needed. active Not Available Not Available No t Available cephalexin 500 mg capsule active Not Available Not Available N ot Available omeprazole 20 mg capsule,delaye d release Take 1 capsule every day by oral route. active Not Available Not Available No t Available estradiol 0.01% (0.1 mg/gram) vaginal cream Insert by vaginal route. active Not Available Not Available No t Available methylpredniso lone 4 mg tablets in a dose pack active Not Available Not Available No t Available clobetasol 0.05 % shampoo active Not Available Not Availab le Not Available duloxetine 30 mg capsule,delaye d release Take 1 capsule twice a day by oral route as directed for 30 days. active Not Available Not Available No t Available Vitals Date Recorded Body temperature Provider Name a nd Address Organization Details Last Updated DateTime 03/18/2023 97.5 [degF] Neelima Flores [facility], [facility] 03/18/2023 09:03:03 Date Recorded Body weight Body mass index (BMI) Body height Respiratory rate Heart rate Oxygen saturation Oxygen saturation in Arterial blood by Pulse oximetry Heart rate Systolic blood pressure Diastolic blood pressure Provider Name and Address Organization Details Last Updated DateTime 3 97132.6 g 19.9 kg/m2 172.72 cm 18 /min 75 /min 99 % 99 % 75 /min 115 mm[Hg] 77 mm[Hg] Emily Kapadia [facility] 3 09:17:16 Social History Question Answer Notes LastModified by Organizat ion Details LastModified Time Tobacco Smoking Status Never Smoker Emily Kapadia [facility], [facility] 03/18/2023 09:13:43 Do You Have An Advance Directive? Yes Theodore Lee [email or web address] Information not available 03/18/2023 What Is Your Level Of Alcohol Consumption? Occasional [email or web address] Information not available 03/18/2023 Are You Blind Or Do You Have Difficulty Seeing? No [email or web address] Information not available 03/18/2023 What Is Your Level Of Caffeine Consumption? Heavy [email or web address] Information not available 03/18/2023 In The 14 Days Before Symptom Onset, Have You Had Close Contact With A Laboratory-confir med COVID-19 While That Case Was Ill? No Information not available 03/18/2023 In The 14 Days Before Symptom Onset, Have You Had Close Contact With A Person Who Is Under Investigation For COVID-19 While That Person Was Ill? No [email or web address] Information not available 03/18/2023 Have You Been To An Area Known To Be High Risk For COVID-19? No [email or web address] Information not available 03/18/2023 Are You Currently Employed? No [email or web address] Information not available 03/18/2023 Are You Deaf Or Do You Have Serious Difficulty Hearing? No [email or web address] Information not available 03/18/2023 What Type Of Diet Are You Following? SPECIFIC No Bread And No Sugar [email or web address] Information not available 03/18/2023 Which Of Your Hands Is Dominant? Right [email or web address] Information not available 03/18/2023 Do You Feel Stressed (tense, Restless, Nervous, Or Anxious, Or Unable To Sleep At Night)? [id number] [email or web address] Information not available 03/18/2023 Do You Use Any Illicit Or Recreational Drugs? No [email or web address] Information not available 03/18/2023 Do You Or Have You Ever Used Any Other Forms Of Tobacco Or Nicotine? No Information not available 03/18/2023 Sex: Unknown Functional Status Question Answer Note LastModified by Organizat ion Details LastModified Time Do you have difficulty walking or climbing stairs? No [email or web address] Information not available 03/18/2023 Are you able to walk? YESWOREST [email or web address] Information not available 03/18/2023 Do you have difficulty doing errands alone? No [email or web address] Information not available 03/18/2023 Do you have difficulty dressing or bathing? No [email or web address] Information not available 03/18/2023 Mental Status Question Answer Note LastModified by Organization D etails LastModified Time Do you have difficulty concentrating, remembering or making decisions? No Information no t available 03/18/2023 Family History Relationship Description Onset Age of this Age Resolved Age Notes LastModified by Organization Details LastModified Time Mother Family history of diabetes mellitus Not available 2022 09:12:12 Mother Family history of Alzheimer's disease Not available 2022 09:12:20 Mother Family history of cardiac disorder [email or web address] Not available 2022 09:12:32 Father Family history of Depression [email or web address] Not available 03/18 09:12:44 Medical History Condition Response Coronary Artery Disease N Gout N Head Trauma/Injury N Hernia N Thyroid Problems Y Depression N COPD N Anemia Y Ulcers N Heart Attack ([place]) N Diabetes N Anxiety Disorder N Bleeding Disorder N Arthritis Y Tuberculosis N AIDS/HIV N Acid Reflux (GERD) Y Cancer N Stroke N Asthma N Substance Abuse N Back Injury Y High Cholesterol Y Hepatitis N Liver Disease N Heart Disease N Fibromyalgia Y Headaches Y Hypertension N Osteoporosis Y Kidney Disease N Gynecological HistoryNo gynecological history recorded. Obstetrics History GPAL:G 0 P 0 0 0 0 Past Encounters Encounter ID Performer Location Encounter Start Date Encounter Closed Date Diagnosis/Indication Diagnosis SNOMED-CT Code Diagnosis ICD10 Code Diagnosis Note [id number] Mamadou Patel MD Main Office [address] [place] [address] [address] [place] [address] 03/18/2023 09:01:11 03/22/2023 18:26:14 Long-term current use of opiate analgesic drug 5840990638 89814 Z79.891 Fibromyalgia 769866022 M 79.7 P.[employer] [place] Complex re gional pain syndrome 413150936 G90.521 RT foot CRPS.Arvind nue cymbalta.H EP, including desensitiz ation training.P .T Lumbar post-laminectomy syndrome 532103937 M96.1 HEP Lumbar radiculopathy 128 903867 M54.16 continue cymbaltaHE PNCS/EMG LEs Lumbosacra l spondylosis without myelopathy 06192428 M47.817 RFr if needed. History of cervical spine fusion 2954299104 101 Z98.1 HEP Health Concerns Section Related Observation LastModified by Organization Detai ls LastModified Time None Recorded Concern Status LastModified by Organization Details LastModified Time None Recorded Advance Directives Directive Y: theodore lee Payers Encounter Date Sequence Insurance Name Policy Number Policy [place] Covered Member ID [employer] Member ID Guarantor Name 03/18/2023 1 [facility] (MEDICARE REPLACEMENT/A DVANTAGE - PPO) [id number] Gildardo Lee [id number] Laura Moralespatrice Lee Notes Date Note Type Note Provider Name and Address Organization Details Recorded Time 03/18/2023 text/html 62 years old female with a history right and foot pain since she had injury in 1986, status post lumbar surgery, status post cervical fusion, was diagnosed for fibromyalgia, migraine, GERD, osteoarthritis. She presented today with low back pain, right leg and right foot pain, the pain is deep aching constant rated to 2-10/10 [facility], the pain without paresthesia. She tried Cymbalta in the past and Valium and also hydrocodone. Screening UT done today was negative for all drugs tested. Maamdou Patel MD [address] [place] [address],[address], [place], [address], [facility], [facility] 03/22/2023 18:25:54 OBGyn Episode No OBEpisode recorded.
--- OUTSIDE RECORDS SUMMARY | 2024-12-11 09:09 | XMS_ITS | Data Portability ---
Author Organization [facility], [place], [facility] Address [address] [place] [phone] Care Team Providers Care Contract Driver Name Role Phone JUAN JOSE ÁLVAREZ Primary Care Provider [phone] JUAN JOSE ÁLVAREZ Referring Provider [phone] JUAN JOSE ÁLVAREZ Primary Care Provider [phone] Assessment Encounter Date Assessment Date Assessment LastModified by Organization Details LastModified Time 05/05/2019 05/05/2019 Impression: Laura indicates that she was doing extremely well until she tripped 1 week ago. She indicates that she does have a little element of a foot drop that manifests at the end of the day or when she is fatigued. Now she is having more pain over the inside of her ankle and a saphenous nerve. She is not wearing supportive shoes. She does not have her arch supports in the shoes. So far she is doing nothing to support the recently injured tendon. Plan: I discussed that she should start wearing her arch supports and possibly the ankle brace. If she still has pain she can have a hinged AFO made. She is going to let me know if her symptoms begin to decrease. [email or web address] Not available 05/05/2019 10:48:26 08/21/2021 08/21/2021 this patient presents with a fairly classic arthritis and instability pattern of the right thumb with a incidental ganglion cyst at the IP joint as well as some minor neurologic issues which do not appear to have any significant clinical impact at present. We discussed the pathophysiology of the etiology and treatment approaches available for his clinical problem at great length. The relative merits and drawbacks of all treatment approaches were discussed at great length. We spent over 30 minutes in consultation discussing the presenting complaints, any imaging studies and other pertinent history. at the end of this discussion and question and answer session the patient is going to consider her surgical options. My recommendation would be for an arthrodesis of the IP joint of the thumb a first CMC joint interposition LR TI type of arthroplasty and a volar plate advancement arthroplasty of the MCP joint. I do not think that any of the neurologic findings at present require any intervention. She is going to consider her options and get back to me if she would like to proceed with this office. Not available 08/22/2021 15:27:40 04/16/2023 04/16/2023 Hallux limitus first MTP joint right greater than left, bunion deformity left greater than right, hammertoe deformities bilateral with evidence of peripheral vascular disease, raynauds, peripheral neuropathy, fibromyalgia, and history of complex regional pain syndrome and for lower back surgeries in the lumbar region. [email or web address] Not available 04/16/2023 13:30:34 09/23/2023 09/23/2023 this patient has a contusion to the elbow with not significantly strong evidence of a fracture although I cannot rule out the possibility of a hairline fracture of the radial head. I recommended ice and anti-inflammatory treatments and early motion of the elbow will have her come back in 2 weeks for another evaluation of the elbow. We will also do a further deep dive on her thumb and hand arthritis with new x-rays and determine if any conservative or more aggressive treatments might be indicated at that time. All questions were answered she is comfortable with this plan. Not available 09/23/2023 16:09:22 10/08/2023 10/08/2023 This patient has a essentially nondisplaced fracture of the radial head on the right elbow. I have recommended continued light activities for several more weeks and then a return to normal activities thereafter. If she should have any further complaints or concerns with the elbow she will get back in contact with us. We did discuss that the patient does have some baseline arthritis in her hands particularly thee middle finger PIP joint. We had a lengthy discussion regarding this clinical problem I recommended ice and anti-inflammatory treatments and other activity modification as possible. We did discuss that if the symptoms worsen we could consider cortisone injections and she will contact the office if any further symptoms occur. Not available 10/09/2023 10:00:08 Plan of Treatment Reminders Order Date Submit Date Provider Last Modified By Organization Details Last Modified Time Details Appointments None record ed. Lab None record ed. Referral None record ed. Procedures None record ed. Surgeries None record ed. Imaging None record ed. Medication Orders None record ed. Patient TargetsNo targets recorded. Patient Instructions Encounter Date Encounter Id Patient Instructions Last Modified By Organization Details Last Modified Time 04/16/2023 [id number] Peripheral Arterial Disease (PAD): Care Instructions [email or web address] Not available 04/16/2023 13:47:55 I reviewed all these findings with this patient including her radiographs, history, clinical findings and we discussed treatment recommendations. In light of her significant past medical history including peripheral vascular disease, neuropathy, complex regional pain syndrome, fibromyalgia, I do not recommend surgical intervention and also I do not feel her symptoms clinically warrant this procedure. I would not expect a favorable result since most of her complaints appear to be pleuritic and due to her neuropathic pain. She could utilize lidocaine patches, physical therapy, referral to Dr. Gardner in the pain clinic, as well as considering propranolol and Lyrica which have worked well for her in the past. She states that she has had most of these interventions and is going to review those with Dr. Gardner in the near future. However questions were answered and she was comfortable with this plan. Voice recognition software disclaimer: Please note that portions of this report were transcribed using [employer] speech recognition software. If any discrepancy or uncertainty is present, please contact our office directly for clarification. [email or web address] Not available 04/16/2023 13:47:35 Reason for Referral None Reported. Results Created Date Observation Date Name Description Value Unit Range Abnormal Flag Note LastModifiedBy Organization Detail LastModifiedTime 04/16/20 23 04/16/2023 XR, ankle , 3 or more view Right foot: 3 views. Right ankle: 3 views. INDICA TION: Pain. Ankle mortis e is intact . There is no joint effusi on. No fractu re or destru ctive lesion is eviden t. The distal foot demons trates mild degene rative change in the interp halang eal joints . There is also mild degene rative change at the first metata rsopha langea l joint. IMPRES AMRITA: No acute osseou s abnorm ality. ____ Fin al Report Dictat ed: 2022 11:57 am Dictat ed By: Eliz Ramírez MD [facility] Signat ure: 2022 11:58 am Signed By: Liudmila naranjo MD, Eliz [facility] (Radiology) [address] [place] [address], [id number], 04/16/2023 17:23:01 04/16/20 23 04/16/2023 XR, foot, 3 or more view Right foot: 3 views. Right ankle: 3 views. INDICA TION: Pain. Ankle mortis e is intact . There is no joint effusi on. No fractu re or destru ctive lesion is eviden t. The distal foot demons trates mild degene rative change in the interp halang eal joints . There is also mild degene rative change at the first metata rsopha langea l joint. IMPRES AMRITA: No acute osseou s abnorm ality. ____ Fin al Report Dictat ed: 2022 11:57 am Dictat ed By: Eliz Ramírez MD [facility] Signat ure: 2022 11:58 am Signed By: Liudmila naranjo MD, Eliz [facility] (Radiology) [address] [place] [address], [id number], 04/16/2023 17:23:00 09/26/20 23 09/17/2023 XR, elbow , 2 view No observ ation record ed. BARCODE Not Available 2022 09:38:24 10/08/2010/08/2023 hand 3 view minim um Left Wrist, 3 views Left hand, 3 views Histor y: : PAIN COMPAR KARIME: None availa ble. Left wrist: Mild scallo ping of the radial articu lar margin is likely of chroni c nature . No fractu re seen. Althou gh styloi d is intact . Alignm ent is mainta ined. Soft tissue s are intact . There is mild degene rative change s seen involv ing the first carpom etacar pal joint, with minor sclero tic change s/mini mal spurri ng presen t. There is also is a small focus of hetero topic ossifi cation in the proxim al first and second metaca rpals. Left hand: Bony struct ures and alignm ent are intact . Mild joint space narrow ing is seen involv ing the medial middle phalan geal PIP joint. There is mild soft tissue swelli ng over the dorsum of the distal forear m. No fractu re or sublux ation is seen. IMPRES AMRITA: No fractu re or sublux ation is seen. Sid veloz Site: [facility] ____ Fin al Report Dictat ed: 2022 12:34 pm Dictat ed By: ELISEO BENTON MD [facility] Signat ure: 2022 12:36 pm Signed By: ELISEO BENTON MD INTERFACE [facility] (Radiology) [address] [place] [address], [place], [id number], 10/08/2023 12:40:51 10/08/20 23 10/08/2023 wrist 3 view minim im Left Wrist, 3 views Left hand, 3 views Histor y: : PAIN COMPAR KARIME: None availa ble. Left wrist: Mild scallo ping of the radial articu lar margin is likely of chroni c nature . No fractu re seen. Althou gh styloi d is intact . Alignm ent is mainta ined. Soft tissue s are intact . There is mild degene rative change s seen involv ing the first carpom etacar pal joint, with minor sclero tic change s/mini mal spurri ng presen t. There is also is a small focus of hetero topic ossifi cation in the proxim al first and second metaca rpals. Left hand: Bony struct ures and alignm ent are intact . Mild joint space narrow ing is seen involv ing the medial middle phalan geal PIP joint. There is mild soft tissue swelli ng over the dorsum of the distal forear m. No fractu re or sublux ation is seen. IMPRES AMRITA: No fractu re or sublux ation is seen. Readin g Site: [facility] ____ Fin al Report Dictat ed: 2022 12:34 pm Dictat ed By: ELISEO BENTON MD [facility] onic Signat ure: 2022 12:36 pm Signed By: ELISEO BENTON MD [facility] (Radiology) [address] [place] [address], [id number], 10/08/2023 12:40:54 10/08/20 23 10/08/2023 elbow 3 view minim um Right elbow radiog raphs, 3 views. Techni que: PA, latera l, obliqu e. Indica tion: Pain. Compar karime: Right elbow radiog raph dated June 20, 2017 Findin gs: There is a small discon tinuit y in the radial head cortic al surfac e on the obliqu e view and some sclero sis deep to that. Findin gs consis tent with a nondis placed radial head fractu re possib ly acute or subacu te. There may be a small effusi on Impres amrita: Radial head fractu re and effusi on Radiol ogy Reside nt: Daisha gomes MD 2022 2:05 PM . (Atten ding review by Dr. Mando Saldana M.D. I have person ally review ed the study and agree with the report ed findin gs. READIN G SITE: [facility]) ____ Fin al Report Dictat ed: 2022 2:03 pm Dictat ed By: ASHLIE Gomes MD, DAISHA Jolly [facility] Signat ure: 2022 3:02 pm Signed By: MANDO SALDANA MD [facility] (Radiology) [address] [place] [address], [id number], 10/08/2023 15:06:21 Result Notes None recorded. Problems Name Problem SNOMED Code Status Onset Date Resolution Date Notes Provider Name and Address Organization Details Recorded Time Osteoarthritis 161131370 Active Jailene Karon null, [place] - [facility] 8 09:34:11 Migraine 94156005 Active Jailene Karon null, [place] - [facility] 8 09:34:17 Osteoporosis 72323763 Active Jailene Karon null, [place] - [facility] 8 09:34:24 Fibromyalgia 876414781 Active Jailene Karon null, [place] - [facility] 8 09:34:29 Problem Notes None recorded. Procedures Surgical History Date Name Laterality Status Provider Name and Address Organization Details Recorded Time Spine Surgery completed Jailenexiang Morrowme MA - [facility] 09/11/2018 09:35:44 Imaging Results Imaging Date Name Status LastModified by Organjered atkadi Details LastModified Time 04/16/2023 XR, ankle, 3 or more view completed [facility] (Radiology) [address] [place] [address], [id number], 04/16/2023 17:23:01 04/16/2023 XR, foot, 3 or more view completed [facility] (Radiology) [address] [place] [address], [id number], 04/16/2023 17:23:00 09/17/2023 XR, elbow, 2 view completed [facility] Information not available 09/26/2023 09:38:24 10/08/2023 hand 3 view minimum active INTERFACE [facility] (Radiology) [address] [place] [address], [id number], 10/08/2023 12:40:51 10/08/2023 wrist 3 view minimim active INTERFACE [facility] (Radiology) [address] [place] [address], [id number], 10/08/2023 12:40:54 10/08/2023 elbow 3 view minimum active INTERFACE [facility] (Radiology) [address] [place] [address], [place], [id number], 10/08/2023 15:06:21 Procedure Notes None recorded. Medical Equipment None Reported. Allergies Allergen ID Allergen Name Allergen Category Reaction Reaction Severity Criticality Documentation Date Start Date Code Code System Note Provider Name and Address Organization Details Recorded Time 8874 strawberr y allergeni c extract food Not available Not available Not available 09/11/2018 90123 4 RxNorm Jailene Karon null, [facility] [place], [facility] 8 09:33:18 8875 blueberry extract food Not available Not available Not available 09/11/2018 51319 29 RxNorm Jailene Karon null, [place] - [facility] 8 09:33:27 8876 adhesive tape environme nt,medica tion Not available Not available Not available 09/11/2018 Jailene Karon null, [facility] 8 09:33:32 Medications Name Sig Start Date Stop Date Status Note LastModified by Organization Details LastModified Time methocarbam ol 500 mg tablet TAKE 2 TABLETS BY MOUTH FOUR TIMES DAILY active Not Available Not Available No t Available hydrocodone 5 mg-acetamin ophen 325 mg tablet active Not Available Not Available No t Available oxycodone-a cetaminophe n 5 mg-325 mg tablet active Not Available Not Available No t Available nifedipine 10 mg capsule TAKE 1 CAPSULE BY MOUTH EVERY 12 HOURS DIRECTED active Not Available Not Available No t Available cephalexin 500 mg capsule active Not Available Not Available Not Available omeprazole 20 mg capsule,del ayed release active Not Available Not Available Not Available estradiol 0.01% (0.1 mg/gram) vaginal cream active Not Available Not Available Not Available methylpredn isolone 4 mg tablets in a dose pack active Not Available Not Available Not Available diazepam 5 mg tablet active Not Available Not Available No t Available sumatriptan 6 mg/0.5 mL subcutaneou s pen injector active Not Available Not Available Not Available clobetasol 0.05 % shampoo active Not Available Not Available Not Available duloxetine 30 mg capsule,del ayed release active Not Available Not Available Not Available sumatriptan 08/21 completed Not Available Not Available Not Available Valium 08/21 completed Not Available Not Available Not Available Marinol 08/21 completed Not Available Not Available Not Available Vitals Date Recorded Body height Body mass index (BMI) Body weight Systolic blood pressure Diastolic blood pressure Provider Name and Address Organization Details Last Updated DateTime 05/05/2019 172.72 cm 21 kg/m2 92460.75 g 116 mm[Hg] 70 mm[Hg] Jailene Brantley MA - [facility], [facility] 9 10:40:44 Date Recorded Body height Body mass index (BMI) Body weight Provider Name and Address Organization Details Last Updated DateTime 04/16/2023 172.72 cm 21 kg/m2 32716.75 g Michelle Navarro MA - [facility], [facility] 04/16/2023 11:22:39 Date Recorded Body height Provider Name an d Address Organization Details Last Updated DateTime 09/23/2023 172.72 cm Darling Navin MA - [facility], [facility] 09/23/2023 15:32:14 Date Recorded Body height Provider Name an d Address Organization Details Last Updated DateTime 10/08/2023 172.72 cm Darling Navin MA - [facility], [facility] 10/08/2023 10:36:56 Social History Question Answer Notes LastModified by Organizat ion Details LastModified Time Tobacco Smoking Status Never Smoker Jailene Brantley null, [place] - [facility], [facility] 09/11/2018 09:35:19 What Is Your Level Of Alcohol Consumption? Occasional Information not available 09/11/2018 Are You Currently Employed? Yes Information not available 09/11/2018 What Is Your Occupation? [employer] Information not available 09/11/2018 What Was The Date Of Your Most Recent Tobacco Screening? 05/05/2019 Information not available 06/18/2019 Sex: Unknown Functional Status None recorded. Mental Status None recorded. Family History Relationship Description Onset Age of this Age Resolved Age Notes LastModified by Organization Details LastModified Time Father Arthritis alaflamme Not availab le 09/11/2018 09:34:46 Mother Arthritis alaflamme Not availab le 09/11/2018 09:34:46 Mother Cerebrovascu lar accident alaflamme Not available 09:34:56 Mother Diabetes mellitus alaflamme Not available 2017 09:35:05 Unspecified Relation Heart disease alaflamme Not available 2017 09:35:13 Medical History Condition Response Coronary Artery Disease N Anxiety/Depression N Gout N Blood Transfusion N Hernia N Lung Disease N COPD N Pacemaker N Edema N Deep Vein Thrombosis N Varicose Veins N Orthotics N Arthritis Y Blood Clot N Cancer N Stroke N Leg or Foot Ulcers N Raynaud's Disease N Polio N High Cholesterol N Liver Disease N Organ Transplant N Rheumatoid Arthritis N Dialysis N Foot Deformity N Fibromyalgia Y Kidney Disease N Heart Problems N Artificial Joints N Migraines N Thyroid Problems N Anemia N Back Pain N Ulcers N Diabetes N Bleeding Disorder N Seizures/Epilepsy N Tuberculosis N AIDS/HIV N Asthma N Substance Abuse N Peripheral Vascular Disease N Hepatitis N Heart Disease N Pulmonary Embolism N Hypertension N Osteoporosis Y Gynecological HistoryNo gynecological history recorded. Obstetrics History GPAL:G 0 P 0 0 0 0 Past Encounters Encounter ID Performer Location Encounter Start Date Encounter Closed Date Diagnosis/Indication Diagnosis SNOMED-CT Code Diagnosis ICD10 Code Diagnosis Note [id number] GIN TORRES MD [facility] [address] [place] [phone] 09/11/2018 09:09:07 09/11/2018 09:45:42 Peroneal tendinitis 58783073 M76.71 Right foot drop 18711420 01 54997 M21.371 Neuritis o f saphenous nerve 309583706 G57.81 [id number] GIN TORRES MD [facility] [address] [place] [phone] 6 11/11/2018 09:20:19 11/11/2018 12:03:42 Peroneal tendinitis of right lower limb 2355523314 37742 M76.71 Foot-drop 9535876 M21.37 9 Tendinitis of right posterior tibial tendon 3619305840 99286 M76.821 [id number] GIN TORRES MD [facility] [address] [place] [id number] 6 12/23/2018 09:46:04 12/23/2018 10:27:41 Tendinitis of left posterior tibial tendon 4552831660 90895 M76.822 Acquired v algus deformity of joint of lower limb 489375273 M21.072 [id number] GIN TORRES MD [facility] [address] [place] [id number] 6 02/03/2019 09:52:32 02/03/2019 13:06:09 Dysfunction of posterior tibial tendon 3200913473 78021 M67.961 Acquired v algus deformity of joint of lower limb 197638156 M21.071 Lumbar radiculopathy 128 869136 M54.16 [id number] GIN TORRES MD [facility] [address] [place] [id number] 03/05/2019 09:07:58 03/05/2019 10:11:11 Dysfunction of posterior tibial tendon of right foot 2052048262 261878 M67.873 Acquired v algus deformity of joint of lower limb 704912798 M21.071 Lumbar radiculopathy 128 467292 M54.16 [id number] GIN TORRES MD [facility] [address] [place] [address] [id number] 6 05/05/2019 10:03:11 05/05/2019 12:51:49 Dysfunction of posterior tibial tendon 3163284817 12819 M67.961 Neuritis o f saphenous nerve 110245350 G57.81 [id number] Claude Patel MD [facility] Main Office [address] [place] [phone] 6 08/21/2021 13:47:02 08/22/2021 15:45:22 Arthritis of first carpometacarpal joint of right hand 9045761854 667487 M13.841 Ganglion c yst of right hand 3299588465 90898 M67.441 Bilateral carpal tunnel syndrome 4998135026 7341862 G56.03 Ulnar neur opathy of left arm 0193392666 53190 G56.22 [id number] MELINDA NAZARIO DPM [facility] Office [address] [place] [id number] 6 04/16/2023 11:15:56 04/16/2023 17:31:42 Pain in right foot 0793053810 64317 M79.671 Acquired h allux limitus of right great toe 0922400346 786177 M20.5X1 Bunion 376155206 M21.61 2 Idiopathic peripheral neuropathy 20339642 G60.8 Peripheral vascular disease 076278240 I73.89 Fibromyalgia 631006781 M 79.7 [id number] Claude Patel MD [facility] Main Office [address] [place] [id number] 6 09/23/2023 15:24:42 09/24/2023 11:52:38 Injury of elbow 318478851 S59.901A Arthritis of first carpometacarpal joint of right hand 6429143873 983113 M13.841 Degenerati ve joint disease of hand 32175430 M19.049 [id number] Claude Patel MD [facility] Main Office [address] [place] [phone] 6 10/08/2023 10:34:06 10/09/2023 12:43:15 Closed fracture of head of right radius 1775858524 4634791 S52.124D Degenerati ve joint disease of hand 68967003 M19.049 Health Concerns Section Related Observation LastModified by Organization Detai ls LastModified Time None Recorded Concern Status LastModified by Organization Details LastModified Time None Recorded Advance Directives Directive None Recorded Payers Encounter Date Sequence Insurance Name Policy Number Policy [employer] Covered Member ID [employer] Member ID Guarantor Name 05/05/2019 1 [facility] [id number] J Taylor Jesus [id number] Laura Taylor-Maha n 08/21/2021 1 [facility] [id number] Gildardo Taylor Jesus [id number] Laura Taylor-Maha n 04/16/2023 1 [facility] [id number] J Taylor Jesus [id number] Laura Taylor-Maha n 09/23/2023 1 [facility] [id number] J Taylor Jesus [id number] Laura Taylor-Maha n 10/08/2023 1 [facility] [id number] J Taylor Jesus [id number] Laura Taylor-Maha n Notes Date Note Type Note Provider Name and Address Organization Details Recorded Time 05/05/2019 text/html AnkleReported bypatient.Location:r ight Quality:aching; not changing Severity:mild; pain level 3/10 Timing:chronic Alleviating Factors:rest; limited weight bearing Aggravating Factors:walking; weightbearing Previous Surgery:none Prior Imaging:no recent studies Previous Injections:none Previous PT:none Work Related:no Working:regular dutyNotes:Laura presents today for an evaluation of right foot pain. She indicates she has been doing very well. She did however fall one week ago when she tripped at the end of the day. She is now starting to have pain again. She does not use the night splint. She did not have the arch supports in her shoes today. She indicates that prior to her fall 1 week ago she was doing great and she was doing all of her activities with no pain. When she saw her neurologist she would not even let him touches the area because she did not one him to set it off again. She tried to go to physical therapy but they only do with her back. They did not do any exercises for her foot and ankle. GIN TORRES MD [address] [place] [address], [phone], [facility] 05/05/2019 10:49:06 08/21/2021 text/html this patient is referred for a second opinion evaluation regarding her right thumb. She has been dealing with a cyst on the dorsal aspect of the IP joint of her right thumb as well as some loss of locking and pain both at the MCP and CMC joints. On she has had cortisone injections and other conservative treatments. She was also tested for carpal tunnel recently and had an EMG which came back with some abnormalities. She is from this area and would like to stay local for surgery she went for a anotherunion prior to coming here and wants to discuss possible treatments for these ongoing issues. She does not have any significant consistent numbness of the episodes are fairly minor and not frequent. She is having difficulties with pain with pinch grasping and other manual activities because of the thumb arthritic issues. Claude Patel MD [address] [place] [address],[place] [address], [place], [phone], [facility], [place] 08/22/2021 15:28:07 04/16/2023 text/html Laura state s that she has had difficulty in her right foot and ankle since 1986. She is presently seeing Dr. Guthrie for her complaints and was considering possible surgery on her right great toe joint. She states that she has had 4 lumbar back surgeries and has had complete numbness in her right lower extremity until last year or so and now is having pain once again and she describes his pain as a burning pain whether she is active or in bed at rest but also notes an aching discomfort with activity at times. She has seen Dr. Ayala as well as Dr. Tai recently for her circulatory issues and will be seeeing him in another week or so. She has had circulation testing and was told that there is some impairment but not severe but she did not bring her test results with her. She also has been told in the past that she has complex regional pain syndrome and has been seen by Dr. Gardner in the pain clinic. She's been on propanolol with good results but discontinued that and tried nifedipine but did have an adverse reaction with pain in her great toes. She'll so was on Lyrica for her fibromyalgia and various complaints with excellent relief but discontinued this medication on her and is not presently utilizing it. MELINDA Kang MANSI [address], [phone], [facility] 04/16/2023 13:47:59 09/23/2023 text/html is a patient I h idania seen in the past for right hand issues who recently fell on her right elbow suffering an injury. She had x-rays taken there was some concern about a fracture she has been referred here for further evaluation and management of this injury approximately a week from the time of the injury. Claude Patel MD [address] [place] [address], [id number], [facility] 09/23/2023 16:09:50 10/08/2023 text/html This patient is here for another evaluation of her right elbow. She was treated conservatively for the possibility of a radial head fracture and she comes in for new x-rays of the elbow and her hand. 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 Claude Patel MD [address], [id number], [facility], [facility] 10/09/2023 10:00:37 OBGyn Episode No OBEpisode recorded.
--- OUTSIDE RECORDS SUMMARY | 2024-12-11 09:09 | XMS_ITS | Data Portability ---
Author Organization [facility] Mary Kate alex[facility], [facility], [facility] Address [address] [place] [address] Care Team Providers Care Edge Brusher Name Role Phone JUAN JOSE ÁLVAREZ Primary Care Provider [phone] JUAN JOSE ÁLVAREZ Referring Provider [phone] Assessment No assessment recorded. Plan of Treatment Reminders Order Date Submit Date Provider Last Modified By Organization Details Last Modified Time Details Appointments None recorded. Lab None recorded. Referral None recorded. Procedures None recorded. Surgeries None recorded. Imaging XR, foot, 3 or more view 2016 017 dpelto In-House Test, For Internal Use Only, Do Not Delete/merge, [id number] 7 17:16:08 MRI, ankle, w/o contrast 2018 019 [facility] At [facility] - [facility], [address] [place] [place] [address], [address], 9 11:16:02 XR, ankle, 2 view 2018 019 dpelto In-House Test, For Internal Use Only, Do Not Delete/merge, [id number] 9 09:20:09 MRI, foot, w/o contrast 2018 019 [facility] At [facility] - Mri, [address] [place] [address], [address], 9 11:15:52 XR, foot, 3 or more view 2018 019 dpelto In-House Test, For Internal Use Only, Do Not Delete/merge, [id number] 9 09:20:09 Medication Orders None recorded. Patient TargetsNo targets recorded. Patient Instructions Encounter Date Encounter Id Patient Instructions Last Modified By Organization Details Last Modified Time 07/18/2017 [id number] Possible foreign body noted to plantar hallux. Area that reflected light noted with magnification with light and could be metal or glass. Area was brushed with #15 blade but no visible foreign body was removed. Nothing was seen on x-ray today. Patient will f/u in 2 months as scheduled unless it becomes worse for patient. She thinks that it may be coming from her back since she has chronic back issues with nerve symptoms that she feels may be going to her toe and I agreed that is a possibility also but would defer to her neurologist or back doctor to evaluate that issue. dpelto Not available 07/23/2017 10:54:46 11/14/2017 [id number] At this time patient is feeling better and has had excellent reduction of symptoms of foot pain. Patient will continue to use recommended treatments from previous visits. Patient will return or contact the office as needed if the symptoms return. She is thinking this could be from the nerve pain from her back issues. dpelto Not available 11/14/2017 08:48:35 09/18/2018 [id number] Hallux Rigidus Limitus dpelto Not available 09/19/2018 12:15:34 toenail fungus: care instructions dpelto Not available 09/19/2018 12:15:34 ingrown toenail: care instructions dpelto Not available 09/19/2018 12:15:34 dpelto Not available 2017 13:34:30 1. Fungus: I belgica d patient that no treatment for the fungal nails is an option but they could become ingrown, painful or loosened due to the fungal infection. As well the fungus can spread to the skin as an athlete's foot. She opted for no treatment today. No ingrown nails were problematic today. 2. Hallux Limitus: Patient continues to deal with 1st MPJ pain. Gave options of cortisone injection, orthotic, carbon fiber insert or strapping of toe. Patient opted for strapping to reduce movement that was done today. Patient will f/u as needed if pain gets worse or continues. dpelto Not available 09/19/2018 12:15:33 06/18/2019 [id number] Hallux Rigidus Limitus dpelto Not available 06/18/2019 09:20:09 toenail fungus: care instructions dpelto Not available 06/18/2019 09:20:09 ingrown toenail: care instructions dpelto Not available 06/18/2019 09:20:09 Patient is being seen back for right foot pain. Foot and ankle continue to be painful in the hallux region as well radiating up to the ankle region now that is quite painful medially on the ankle region. Gave options of cortisone injection but due to a steroid flare reaction last time and pain patient declined the cortisone injection. She has tried different shoes with orthotics, icing, NSAIDs, chiropractic for many months but not resolution of symptoms. Recommended MRI at this time as a repeat of the foot to see if there are any changes compared to last one in 2017 as well due to the ankle pain patient requested MRI fo the ankle region as well for evaluation. New xrays were done today for patient and evaluated with her today that do not show any obvious reasons fo rher pain and therefore recommend MRI for patient. She will be seen back after MRI. dpelto Not available 06/18/2019 09:19:41 09/26/2021 [id number] toenail fungus: care instructions dpelto Not available 09/26/2021 08:23:44 ingrown toenail: care instructions dpelto Not available 09/26/2021 08:23:44 Patient has painful right hallux and ankle that is chronic and has not really improved. Patient is used to the pain at this time. However, now the lateral hallux on the right is painful for patient and blistering to the tip. The blister is due to elevation of distal tuft of the hallux that has probably been from rubbing on the shoe. The nail is thick and ingrown and more chronic in nature. Due to this patient has opted for matrixectomy procedure to narrow the nail edge. I was clear that this will not resolve distal tuft pain but is more from the ingrown. dpelto Not available 09/26/2021 08:23:43 Reason for Referral None Reported. Results Created Date Observation Date Name Description Value Unit Range Abnormal Flag Note LastModifiedBy Organization Detail LastModifiedTime 06/21/20 19 06/20/2019 MRI, foot, w/o contr ast [facility] [address] Access ion Number : [id number] Patien t Name : Alexandrea Cary Record Number : [id number] Date of : 1959 Date of Exam : 2018 Referr ing Physic russ : LAVON CHOWDARY [facility] [address] [facility] - [address] [place] [address] CC Physic ians : JUAN JOSE MARVIN Exam : MR - FOOT (C-) CPT 13307 - RIGHT Room Descri ption : [facility] Siem Espr2 1.5 Techni que : Ax PD FSat, Sag T1, Sag FMPIR, Cor T1, Cor PD FSat Final Report INDICA TION: Non-Co ntrast Exam M25.57 1 - I10 - Pain in right ankle and joints of right foot TECHNI QUE: Multip lanar, multis equenc e MRI of the right ankle and right foot was perfor med withou t contra st using standa rd depart mental protoc ol. COMPAR KARIME: Right foot MRI 017 FINDIN GS: RIGHT ANKLE: Ligame nts: The anteri or talofi bular ligame nt is mildly thicke sharon but intact . The calcan eal fibula r ligame nt and laboratory chief ior talofi bular ligame nt are intact . The syndes motic ligame nts are intact . The deltoi d ligame nt comple x is intact . Tendon s: The perone us brevis and longus tendon s are intact . The tibial is laboratory chief ior, flexor digito rum longus , and flexor halluc is longus tendon s are intact . The tibial is anteri or, extens or digito rum longus , and extens or halluc is longus tendon s are intact . The Achill es tendon is intact . Bone/J oints: There is no eviden ce of a fractu re or focal bone lesion . The cartil age is intact . There is no erosiv e change or joint effusi on. Spaces : The sinus Tarsi is intact . The tarsal tunnel is normal . Others : There is mild thicke sabina of the centra l cord of the planta r fascia withou t other signal abnorm ality, questi on sequel a from age indete rminan t planta r fascii tis. There is mild subcut aneous edema overly ing the medial aspect of the distal Achill es tendon . RIGHT FOOT: A skin marker was placed at the dorsal medial aspect of the great toe at the level of the base of the proxim al phalan x. Bone/J oints: There is no eviden ce of an acute fractu re or focal bone lesion . There is improv ed bone marrow edema within the mid and distal aspect of the great toe distal phalan x withou t corres pondin g T1 signal abnorm ality. There is mild thinni ng of the great toe MTP cartil age. There is no erosiv e change or joint effusi on. Ligame nts: No eviden ce of ligame ntous injury . Specif ically the Lis Franc ligame nt is intact . Tendon s: The includ ed flexor and extens or tendon s are intact . Soft Tissue s: There is no organi zed collec tion of eviden ce of a soft tissue mass. No eviden ce of genera l or asymme tric muscle atroph y. There is a small amount of fluid in the interm etatar eagle bursae . RIGHT ANKLE: Mild focal subcut aneous edema overly ing the distal , medial aspect of the Achill es tendon ; otherw ise, normal MR examin ation of the right ankle. RIGHT FOOT: 1. Improv ed nonspe cific bone marrow edema in the distal aspect of the great toe distal phalan x. 2. Mild great toe MTP osteoa rthrit is. 3. Mild interm etatar eagle bursit is 211RAD W02E ----- PHYSIC RUSS : LUDA JAIME MD (Karina haile on file) [email or web address] Mri At [facility]. - Mri [address] [facility], [place], [address], 07/01/2019 16:36:13 06/21/20 19 06/20/2019 MRI, ankle , w/o contr ast [facility] Access ion Number : [id number] Patigloria de la rosa Name : Alexandrea Carya yadira Record Number : [id number] Date of : 1959 Date of Exam : 2018 Referr fermín Physic russ : L[facility]ON [facility]OWDARY [facility] [address] [facility] - [address] [place] [address] CC Physic ians : JUAN JOSE MARVIN Exam : MR - ANKLE (C-) CPT 89685 - RIGHT Room Descri ption : [facility] Siem Espr2 1.5 Techni que : Ax PD, Ax T2 Fsat, Cor T2 Fsat, Sag T1. Sag STIR Final Report INDICA TION: Non-Co ntrast Exam M25.57 1 - I10 - Pain in right ankle and joints of right foot TECHNI QUE: Multip lanar, multis equenc e MRI of the right ankle and right foot was perfor med withou t contra st using standa rd depart mental protoc ol. COMPAR KARIME: Right foot MRI 017 FINDIN GS: RIGHT ANKLE: Ligame nts: The anteri or talofi bular ligame nt is mildly thicke sharon but intact . The calcan eal fibula r ligame nt and laboratory chief ior talofi bular ligame nt are intact . The syndes motic ligame nts are intact . The deltoi d ligame nt comple x is intact . Tendon s: The perone us brevis and longus tendon s are intact . The tibial is laboratory chief ior, flexor digito rum longus , and flexor halluc is longus tendon s are intact . The tibial is anteri or, extens or digito rum longus , and extens or halluc is longus tendon s are intact . The Achill es tendon is intact . Bone/J oints: There is no eviden ce of a fractu re or focal bone lesion . The cartil age is intact . There is no erosiv e change or joint effusi on. Spaces : The sinus Tarsi is intact . The tarsal tunnel is normal . Others : There is mild thicke sabina of the centra l cord of the planta r fascia withou t other signal abnorm ality, questi on sequel a from age indete rminan t planta r fascii tis. There is mild subcut aneous edema overly ing the medial aspect of the distal Achill es tendon . RIGHT FOOT: A skin marker was placed at the dorsal medial aspect of the great toe at the level of the base of the proxim al phalan x. Bone/J oints: There is no eviden ce of an acute fractu re or focal bone lesion . There is improv ed bone marrow edema within the mid and distal aspect of the great toe distal phalan x withou t corres pondin g T1 signal abnorm ality. There is mild thinni ng of the great toe MTP cartil age. There is no erosiv e change or joint effusi on. Ligame nts: No eviden ce of ligame ntous injury . Specif ically the Lis Franc ligame nt is intact . Tendon s: The includ ed flexor and extens or tendon s are intact . Soft Tissue s: There is no organi zed collec tion of eviden ce of a soft tissue mass. No eviden ce of genera l or asymme tric muscle atroph y. There is a small amount of fluid in the interm etatar eagle bursae . RIGHT ANKLE: Mild focal subcut aneous edema overly ing the distal , medial aspect of the Achill es tendon ; otherw ise, normal MR examin ation of the right ankle. RIGHT FOOT: 1. Improv ed nonspe cific bone marrow edema in the distal aspect of the great toe distal phalan x. 2. Mild great toe MTP osteoa rthrit is. 3. Mild interm etatar eagle bursit is 211RAD W02E ----- PHYSIC RUSS : LUDA JAIME MD (Karina haile on file) 2018 [email or web address] [facility] - Mri [address] [place], [address], 07/01/2019 16:36:13 Result Notes None recorded. Problems No Known Problems Procedures Surgical History Date Name Laterality Status Provider Name and Address Organization Details Recorded Time 09/18/20 18 Strapping Shannane completed Lavon Chowdary, MUSHTAQ [address] [address], [place], [address], [facility] 09/18/2018 13:33:35 02/15/20 17 Injection Small Joint completed Lavon Chowdary, DPKrunal [address], [address], [facility] 02/14/2017 13:12:02 11/25/19 08 Orthopedic Surgery completed [facility] 02/14/2017 09:50:41 11/25/19 05 Orthopedic Surgery completed [facility] 02/14/2017 09:50:41 11/25/19 02 Orthopedic Surgery completed [facility] 02/14/2017 09:50:41 11/25/19 02 Orthopedic Surgery completed [facility] 02/14/2017 09:50:41 11/25/18 99 Orthopedic Surgery completed [facility] 02/14/2017 09:50:41 Imaging Results Imaging Date Name Status LastModified by Organiz ation Details LastModified Time 06/20/2019 MRI, foot, w/o contrast completed [address] [facility] At [facility] - [address], [address], 07/01/2019 16:36:13 06/20/2019 MRI, ankle, w/o contrast [place] [address] [facility] - [address], [address], 07/01/2019 16:36:13 Procedure Notes None recorded. Medical Equipment None Reported. Allergies Allergen ID Allergen Name Allergen Category Reaction Reaction Severity Criticality Documentation Date Start Date Code Code System Note Provider Name and Address Organization Details Recorded Time [id number] adhesive tape environme nt,medica tion hives severe Not available 02/14/2017 53234 UNK Not Available Not Available Not Available Medications Name Sig Start Date Stop Date Status Note LastModified by Organization Details LastModified Time Marinol 5 mg capsule 2020 completed Not Available Not Available Not Available Vitals Date Recorded Body height Body mass index (BMI) Body weight Provider Name and Address Organization Details Last Updated DateTime 11/14/2017 172.72 cm 21 kg/m2 58033.75 [facility] 11/14/2017 08:39:37 Date Recorded Body height Provider Name an d Address Organization Details Last Updated DateTime 09/18/2018 172.72 cm Belinda Garcia [facility] 09/18/2018 12:58:52 Date Recorded Body height Body mass index (BMI) Body weight Provider Name and Address Organization Details Last Updated DateTime 06/18/2019 172.72 cm 21 kg/m2 86501.75 [facility] 06/18/2019 08:11:44 Date Recorded Body height Body mass index (BMI) Body weight Provider Name and Address Organization Details Last Updated DateTime 09/26/2021 172.72 cm 19.8 kg/m2 51004.01 roselia Blake [facility] 09/26/2021 07:54:51 Date Recorded Body height Body mass index (BMI) Body weight Provider Name and Address Organization Details Last Updated DateTime 07/18/2017 172.72 cm 21 kg/m2 17905.75 [facility] 07/18/2017 16:12:38 Social History Question Answer Notes LastModified by Organizat ion Details LastModified Time Tobacco Smoking Status Never Smoker Belinda Garcia [facility] 02/14/2017 09:50:40 Do You Have An Advance Directive? Yes Information not available 09/18/2018 What Is Your Level Of Alcohol Consumption? Occasional Information not available 02/14/2017 Are You Blind Or Do You Have Difficulty Seeing? No [email or web address] Information not available 09/26/2021 Are You Deaf Or Do You Have Serious Difficulty Hearing? No [email or web address] Information not available 09/26/2021 Which Illicit Or Recreational Drugs Have You Used? None Information not available 09/18/2018 Do You Or Have You Ever Used E-cigarettes Or Vape? Never Used Electronic Cigarettes [email or web address] Information not available 09/26/2021 What Is Your Occupation? Retired [email or web address] Information not available 09/26/2021 What Is Your Height? 5?8? [email or web address] Information not available 09/26/2021 What Is Your Weight? 130 [email or web address] Information not available 09/26/2021 Do You Have Type 2 Diabetes? No [email or web address] Information not available 09/26/2021 Do You Have Type 1 Diabetes No [email or web address] Information not available 09/26/2021 Are You Being Seen Today For A Work Related Injury? No [email or web address] Information not available 09/26/2021 What Is Your Shoe Size & Width? 8 Or 8.5 Information not available 02/14/2017 Marital Status [email or web address] Informatio n not available 09/26/2021 Do You Have A Medical Power Of Mussel Farmer? No [email or web address] Information not available 09/26/2021 What Was The Date Of Your Most Recent Tobacco Screening? 09/18/2018 [email or web address] Information not available 09/26/2021 What Is Your Relationship Status? [email or web address] Information not available 09/26/2021 How Much Tobacco Do You Smoke? No Information not available 02/14/2017 Do You Use Any Illicit Or Recreational Drugs? No [email or web address] Information not available 09/26/2021 Has Tobacco Cessation Counseling Been Provided? No [email or web address] Information not available 09/26/2021 Do You Or Have You Ever Used Any Other Forms Of Tobacco Or Nicotine? No [email or web address] Information not available 09/26/2021 Sex: Unknown Functional Status Question Answer Note LastModified by Organizat ion Details LastModified Time Do you have difficulty walking or climbing stairs? No [email or web address] Information not available 09/26/2021 Are you able to walk? YESWOREST [email or web address] Information not available 09/26/2021 Mental Status None recorded. Family History Relationship Description Onset Age of this Age Resolved Age Notes LastModified by Organization Details LastModified Time Mother Arthritis [email or web address]-13 Not available 02/14/2017 09:17:53 Mother Diabetes mellitus API-13 Not available 2016 09:17:53 Mother Foot problem API-13 Not availab le 02/14/2017 09:17:53 Medical History Condition Response High Blood Pressure N Lower Limb amputations N MRSA N Emphysema N Respiratory Disease N Circulatory Problems N Congenital Heart Lesions N Thyroid Problems N Psychiatric Care N Pacemaker N Anemia N Multiple Sclerosis N Bleeding Tendency N Deep Vein Thrombosis N Varicose Veins Y Diabetes N Rheumatic Fever N Arthritis Y Seizures/Epilepsy N Blood Disease N Heart Murmur N Tuberculosis N AIDS/HIV N Cancer N Chemical Dependency N Stroke N Low Blood Pressure N Asthma N Epilepsy N Peripheral Vascular Disease N Shortness of Breath N High Cholesterol N Mitral Valve Prolapse N Liver Disease N Heart Disease N Rheumatoid Arthritis N Foot Deformity N Fibromyalgia Y Hepatitis A, B, or C N Ulcer N Kidney Disease N Gynecological HistoryNo gynecological history recorded. Obstetrics History GPAL:G 0 P 0 0 0 0 Past Encounters Encounter ID Performer Location Encounter Start Date Encounter Closed Date Diagnosis/Indication Diagnosis SNOMED-CT Code Diagnosis ICD10 Code Diagnosis Note [id number] Lavon Chowdary [facility] [address] [address] 02/14/2017 09:09:53 02/14/2017 10:34:42 Ingrowing nail 960369431 L60.0 Localized, primary osteoarthritis of the ankle and/or foot 495279165 M19.071 Onychomyco sis due to dermatophyte 332655173 B35.1 [id number] Lavon Chowdary [facility] [address] [address] 02/28/2017 09:50:18 02/28/2017 10:47:11 Localized, primary osteoarthritis of the ankle and/or foot 243724370 M19.071 Onychomyco sis due to dermatophyte 796245474 B35.1 Bone cyst 029012101 M85. 671 [id number] Lavon Chowdary [facility] [address] [address] 03/20/2017 09:50:33 03/20/2017 10:25:05 Localized, primary osteoarthritis of the ankle and/or foot 142023315 M19.071 Onychomyco sis due to dermatophyte 356456030 B35.1 Bone cyst 316385608 M85. 671 [id number] Lavon Chowdary [facility] [address] [address] 06/19/2017 08:06:05 06/19/2017 08:56:21 Pain in hallux 992364726 M79.674 Localized, primary osteoarthritis of the ankle and/or foot 945345820 M19.071 Bone cyst 630059640 M85. 671 [id number] Lavon Chowdary [facility] [address] [place] [id number] 07/18/2017 16:04:51 07/18/2017 16:36:42 Superficial foreign body in toe 278573514 S90.452A [id number] Lavon Chowdary [facility] [address] [place] [id number] 11/14/2017 08:38:20 11/14/2017 08:52:39 Superficial foreign body in toe 090204936 S90.452A [id number] Lavon Chowdary [facility] [address] [place] [id number] 09/18/2018 12:49:28 09/18/2018 13:36:09 Ingrowing nail 252410651 L60.0 Acquired h allux rigidus 4343340 M20.21 Onychomycosis 611595335 B35.1 [id number] Lavon Chowdary [facility] [address] [place] [id number] 06/18/2019 08:06:18 06/18/2019 09:20:15 Ingrowing nail 689764515 L60.0 Acquired h allux rigidus 7391652 M20.21 Onychomycosis 810966021 B35.1 Pain of ri ght ankle joint 9184202388 6746616 M25.571 [id number] Lavon Chowdary [facility] [address] [place] [id number] 09/26/2021 07:44:46 09/26/2021 08:24:41 Ingrowing nail 419927938 L60.0 Onychomycosis 343558722 B35.1 Health Concerns Section Related Observation LastModified by Organization Detai ls LastModified Time None Recorded Concern Status LastModified by Organization Details LastModified Time None Recorded Advance Directives Directive Y: Payers Encounter Date Sequence Insurance Name Policy Number Policy [place] Covered Member ID [place] Member ID Guarantor Name 07/18/2017 1 [facility] (MEDICARE REPLACEMENT/A DVANTAGE - HMO) [id number] J Brandon Lee [id number] Laura Taylor-Maha n 11/14/2017 1 [facility] (MEDICARE REPLACEMENT/A DVANTAGE - HMO) [id number] Gildardo Taylorpatrice Lee [id number] Laura Taylor-Maha n 09/18/2018 1 [facility] (MEDICARE REPLACEMENT/A DVANTAGE - HMO) [id number] Gildardo Taylorpatrice Lee [id number] Laura Taylor-Maha n 06/18/2019 1 [facility] (MEDICARE REPLACEMENT/A DVANTAGE - HMO) [id number] Gildardo Taylorpatrice Lee [id number] Laura Taylor-Maha n 09/26/2021 1 [facility] (MEDICARE REPLACEMENT/A DVANTAGE - HMO) [id number] J Brandon Lee [id number] Laura Taylor-Maha n Notes Date Note Type Note Provider Name and Address Organization Details Recorded Time 07/18/2017 text/html General Foot ProblemReported bypatient.Location:nd ght Severity:mild; pain level 3/10 Duration:2 weeks Timing:cannot identify Context:cannot identify Alleviating Factors:nothing helps Aggravating Factors:cannot identify Associated Symptoms:no weakness; no numbness; no tingling; no swelling; no redness; no warmth; no radiation down leg; no drainage; no aching; no throbbing Prior Imaging:x ray Previous Injections:none Previous Treatments:noneNotes: Patient is here because she thinks she has glass in her right great toe. She states it has been causing her pain for a couple of weeks now. She states she has tried soaking and applying duck tape. Lavon Chowdary, MUSHTAQ [address], [address], [facility] 07/23/2017 10:54:50 11/14/2017 text/html Follow Up VisitReported bypatient.Symptoms:im proving; scale: 3 Previous Therapy:none Previous Injections:helped a little Prior Studies:noneNotes:Riddhi hyde is here following up on right foot pain. She states the great toe has been better. Lavon Chowdary DPM [address] [address], [place], [address], [facility] 11/14/2017 08:48:46 09/18/2018 text/html Ingrown NailRepo rted bypatient.Location:[facility] 1st digit(s); lateral border Quality:aching Severity:moderateNote s:Patient states that her right great toe is bothering her. The lateral side of the toe is sensitive when sheets touch it. Lavon Chowdary DPM [address] [address], [place], [id number], [facility] 09/19/2018 12:16:25 06/18/2019 text/html Follow Up VisitReported bypatient.Symptoms:sa me; scale: 4 Previous Therapy:none Previous Injections:none Prior Studies:noneNotes:Riddhi hyde is here following up on right great toe pain. She states her pain varies from a 2 to an 8. She states the toe is still the same. Lavon Chowdary DPM [address] [address], [place], [id number], [facility] 06/18/2019 09:20:13 09/26/2021 text/html General Foot ProblemReported bypatient.Location:[facility] Timing:acute Alleviating Factors:removal of shoes Aggravating Factors:closed toe shoes Associated Symptoms:no weakness; no numbness; no tingling; no swelling; no redness; no warmth; no drainage; no aching; no throbbing;radiation down legNotes:Patient presents to the office for concerns regarding her right hallux. She relates that she has a blister on the distal end of her hallux and has been having trouble cutting the nail. She relates that she has pain on the medial side of the right hallux. She states that there has been no fluid draining but relates that the toe is a little swollen. Lavon Chowdary, [facility] [address] [address], [place], [id number], [place] [facility] 09/26/2021 08:24:06 OBGyn Episode No OBEpisode recorded.
== END 2024-12-11 10:21 | disposition home or self-care (01) ==
PROVIDERS: Visit Provider Neurological Surgery
DX: M46.1 Sacroiliitis, not elsewhere classified (principal)
CPT/HCPCS: 99204

== ENCOUNTER → 2024-12-11 08:42 | Outpatient (BNVA) | payer MEDICARE, SELFPAY | PROVIDERS: Visit Provider Neurological Surgery | DX: M46.1 Sacroiliitis, not elsewhere classified (principal) | CPT/HCPCS: 99202 ==